=== PATIENT | female | born 1980 | race African-American/Black ===

== ENCOUNTER 2019-12-13 06:57 | Emergency (ER) | payer BC ==
[~2019-12-13] VITALS: Ht 162.6 cm; Wt 70.0 kg
[~2019-12-13 06:57] MED LIST: IBUP-1027 PO; ORPH100T PO
[2019-12-13 07:10] VITALS: BP 155/104
[2019-12-13] MEDS ORDERED: predniSONE 20 MG TABLET PO ONE (07:30)
[2019-12-13] MEDS ORDERED: PRED20TA PO (07:32)
--- NOTE | 2019-12-13 07:33 | PHYS DOC ---
Past Medical History Past Medical History: No Pertinent History Past Surgical History: No Surgical History Smoking Status: Never Smoker Alcohol Use: Occasionally Drug Use: Marijuana General Adult EDM: Chief Complaint: FACE PAIN HPI: HPI: Patient is a 39-year-old otherwise healthy female who presents with a fullness to the right side of her face. It feels like she has a sinus infection. The pain is throbbing in that area. She denies any rash. She denies any visual changes. She has had a watery eye at times. She tried Flonase at home without any benefit [] Review of Systems: Review of Systems: Constitutional: Denies fever or chills. [] Eyes: Denies change in visual acuity. [] HENT: Per HPI. [] Respiratory: Denies cough or shortness of breath. [] Cardiovascular: Denies chest pain or edema. [] GI: Denies abdominal pain, nausea, vomiting, bloody stools or diarrhea. [] : Denies dysuria. [] Musculoskeletal: Denies back pain or joint pain. [] Integument: Denies rash. [] Neurologic: Denies headache, focal weakness or sensory changes. [] Endocrine: Denies polyuria or polydipsia. [] Lymphatic: Denies swollen glands. [] Psychiatric: Denies depression or anxiety. [] Heart Score: Risk Factors: Risk Factors: DM, Current or recent (<one month) smoker, HTN, HLP, family history of CAD, obesity. Risk Scores: Score 0 - 3: 2.5% MACE over next 6 weeks - Discharge Home Score 4 - 6: 20.3% MACE over next 6 weeks - Admit for Clinical Observation Score 7 - 10: 72.7% MACE over next 6 weeks - Early Invasive Strategies Allergies: Allergies: Allergies Coded Allergies Type Severity Reaction Last Updated Verified No Known Drug Allergies 03/14/19 No Physical Exam: PE: Constitutional: Well developed, well nourished, mild distress, non-toxic appearance. [] HENT: Normocephalic, atraumatic, bilateral external ears normal, oropharynx moist, no oral exudates, nose normal. [] Eyes: PERRLA, EOMI, conjunctiva normal, no discharge, no pain with ocular compression. [] Neck: Normal range of motion, no tenderness, supple, no stridor. [] Cardiovascular:Heart rate regular rhythm, no murmur [] Lungs & Thorax: Bilateral breath sounds clear to auscultation [] Abdomen: Bowel sounds normal, soft, no tenderness, no masses, no pulsatile masses. [] Skin: Warm, dry, no erythema, no rash. [] Back: No tenderness, no CVA tenderness. [] Extremities: No tenderness, no cyanosis, no clubbing, ROM intact, no edema. [] Neurologic: Alert and oriented X 3, normal motor function, normal sensory function, no focal deficits noted. [] Psychologic: Anxious. [] Current Patient Data: Vital Signs: Vital Signs Date Time Temp Pulse Resp B/P (MAP) Pulse Ox O2 Delivery O2 Flow Rate FiO2 12/13/19 07:10 98.6 77 12 155/104 (121) 98 Room Air 98.6 EKG: EKG: [] Radiology/Procedures: Radiology/Procedures: [] Course & Med Decision Making: Course & Med Decision Making Pertinent Labs and Imaging studies reviewed. (See chart for details) [] Dragon Disclaimer: Dragon Disclaimer: This electronic medical record was generated, in whole or in part, using a voice recognition dictation system. Departure Departure Impression: Primary Impression: Sinusitis Qualified Codes: J32.0 - Chronic maxillary sinusitis Disposition: HOME, SELF-CARE Condition: STABLE Referrals: NO PCP (PCP) Patient Instructions: Sinusitis Scripts Prednisone (PREDNISONE) 20 Mg Tablet 3 TAB PO DAILY PRN for COUGH for 5 Days, #15 TAB Prov: MINAL HERNANDEZ DO 12/13/19 MINAL HERNANDEZ DO December 13, 2019 07:33
== END 2019-12-13 07:44 | disposition home or self-care (01) ==
LOC: ER 06:57
DX: J32.0 Chronic maxillary sinusitis (principal); R51 Headache; F12.90 Cannabis use, unspecified, uncomplicated
CPT/HCPCS: 99283; J7512

== ENCOUNTER 2021-05-01 08:52 | Inpatient (IN) | payer BC ==
[~2021-05-01] VITALS: Ht 162.6 cm; Wt 82.4 kg
[~2021-05-01 08:52] MED LIST changes: +PRED20TA PO
[2021-05-01] MEDS ORDERED: DEXAMETHASONE SOD PHOS 20 MG/5 ML VIAL. IV ONE (09:15)
[2021-05-01] MEDS ORDERED: ACETAMINOPHEN 500 MG TABLET PO ONE (09:15)
[2021-05-01] MEDS ORDERED: IV NORMAL SALINE 1000ML BAG 1,000 ML IV ONE ×2 (09:15)
--- NOTE | 2021-05-01 09:22 | PHYS DOC ---
Past Medical History Past Medical History: No Pertinent History Past Surgical History: No Surgical History Smoking Status: Never Smoker Alcohol Use: Occasionally Drug Use: Marijuana General Adult EDM: Chief Complaint: MULTIPLE COMPLAINTS HPI: HPI: Patient is a 40 year old female who presents with states began having symptoms 5 days ago and on this past Saturday she was diagnosed with Covid. She states she is had a cough that is productive with yellow sputum, fever, sore throat, nausea, body aches, generalized weakness, shortness of breath, headache. She states her only history is hypertension but she did not take her lisinopril today. She states she has been taking intermittently cold and flu medication, BC powder and Mucinex. Patient has not taken any medications for her symptoms today. She rates her pain 8 out of 10 body aches. Denies vomiting, chest pain, dizziness, vision change, numbness tingling, focal weakness, syncope, diarrhea, urinary symptoms. Review of Systems: Review of Systems: Constitutional: +fever or +chills. [] Eyes: Denies change in visual acuity. [] HENT: Denies nasal congestion or +sore throat. [] Respiratory: +cough or +shortness of breath. [] Cardiovascular: Denies chest pain or edema. [] GI: Denies abdominal pain, +nausea, denies vomiting, bloody stools or diarrhea. [] : Denies dysuria. [] Musculoskeletal: Denies back pain or joint pain. + Generalized body aches , + generalized weakness [] Integument: Denies rash. [] Neurologic: + headache, denies focal weakness or sensory changes. [] Endocrine: Denies polyuria or polydipsia. [] Lymphatic: Denies swollen glands. [] Psychiatric: Denies depression or anxiety. [] Heart Score: C/O Chest Pain: No Risk Factors: Risk Factors: DM, Current or recent (<one month) smoker, HTN, HLP, family history of CAD, obesity. Risk Scores: Score 0 - 3: 2.5% MACE over next 6 weeks - Discharge Home Score 4 - 6: 20.3% MACE over next 6 weeks - Admit for Clinical Observation Score 7 - 10: 72.7% MACE over next 6 weeks - Early Invasive Strategies Current Medications: Current Medications Medications (Trade) Dose Ordered Sig/Isabela Start Time Stop Time Status Last Admin Dose Admin Acetaminophen (Tylenol) 1,000 mg 1X ONCE 05/01/21 09:15 05/01/21 09:16 UNV Dexamethasone Sodium Phosphate (Decadron) 10 mg 1X ONCE 05/01/21 09:15 05/01/21 09:16 UNV Sodium Chloride 1,000 ml @ 1,000 mls/hr 1X ONCE 05/01/21 09:15 05/01/21 10:14 UNV Allergies: Allergies: Allergies Coded Allergies Type Severity Reaction Last Updated Verified No Known Drug Allergies 03/14/19 No Physical Exam: PE: Constitutional: Well developed, well nourished, no acute distress, non-toxic appearance. [] HENT: Normocephalic, atraumatic, bilateral external ears normal, oropharynx [address], no oral exudates, nose normal. [] Eyes: PERRLA, EOMI, conjunctiva normal, no discharge. [] Neck: Normal range of motion, no tenderness, supple, no stridor. [] Cardiovascular:Heart rate regular tachycardic rhythm, no murmur [] Lungs & Thorax: Bilateral upper breath sounds clear and lower diminished to auscultation [] Abdomen: Bowel sounds normal, soft, no tenderness, no masses, no pulsatile masses. [] Skin: Warm, dry, no erythema, no rash. [] Back: No tenderness, no CVA tenderness. [] Extremities: No tenderness, no cyanosis, no clubbing, ROM intact, no edema. [] Neurologic: Alert and oriented X 3, normal motor function, normal sensory function, no focal deficits noted. [] Psychologic: Affect normal, judgement normal, mood normal. [] EKG: EK and read by Dr. Cabezas as sinus tachycardia no STEMI [] Radiology/Procedures: Radiology/Procedures: [] Impression: [facility] [address] [place] [address] IMAGING REPORT Signed PATIENT: TERENCE WHITE RACCOUNT: [id number] : 1980 LOCATION: ER AGE: 40 SEX: F EXAM STATUS: REG ER ORD. PHYSICIAN: WILLAM ARORA APRN REASON: soa, cough, covid+ PROCEDURE: PORTABLE CHEST 1V EXAM: CHEST 1 VIEW History: Shortness of breath, Covid positive COMPARISON: None available. TECHNIQUE: Single portable radiograph of the chest FINDINGS: Low lung volumes and technique accentuates heart size and pulmonary vascularity. Mild bibasilar lung airspace opacities likely atelectasis or infiltrates. IMPRESSION: Mild bibasilar lung airspace opacities likely atelectasis or infiltrates. Follow-up to resolution. Electronically signed by: Michael Quarles MD (05/01/2021 9:48 AM) [id number] DICTATED and SIGNED BY: MICHAEL QUARLES MD DATE: 05/01/21 [id number] Course & Med Decision Making: Course & Med Decision Making Pertinent Labs and Imaging studies reviewed. (See chart for details) COVID-19 CRITERIA: The patient was evaluated during the global COVID-19 pandemic, and that diagnosis was suspected/considered upon their initial presentation. Their evaluation, treatment and testing was consistent with current guidelines for patients who present with complaints or symptoms that may be related to COVID-19. See HPI. Alert and oriented x4. Ambulatory steady gait. Speaks in full clear sentences. Lungs are clear upper lobes and diminished in lower lobes. She is 95% on room air. Abdomen soft and nontender. Mucous membranes dry. Skin pink warm and dry. Febrile at 102.4. Patient is given dexamethasone, Rocephin, azithromycin. ABG shows hypoxia. X-ray shows pneumonia. She is placed on 4 L of oxygen by respiratory. Admitted to hospitalist. [] Miladon Disclaimer: Sebastian Disclaimer: This electronic medical record was generated, in whole or in part, using a voice recognition dictation system. COVID-19 Patient Risks: Age 65 or older: No Sign of co-morbidity: Yes Exp to person + for COVID: No Exp to PUI: No Travel from affected area: No Lower respiratory symptoms: Yes Fever: Yes Other: Yes (NAUSEA, BODYACHES) PPE Use: Full PPE with N95 mask or PAPR: Yes Departure Departure Impression: Primary Impression: COVID-19 Additional Impressions: Hypoxia Pneumonia Qualified Codes: J18.9 - Pneumonia, unspecified organism Disposition: ADMITTED INPATIENT Admitting Physician: HIMCelia Condition: STABLE Referrals: NO PCP (PCP) WILLAM ARORA APRN May 01, 2021 09:22
[2021-05-01] MEDS ORDERED: KETOROLAC 30 MG/ML VIAL. IVP ONE (09:45)
[2021-05-01] MEDS ORDERED: ONDANSETRON PF 4 MG/2 ML VIAL. IVP ONE (09:45)
--- NOTE | 2021-05-01 09:50 | RAD ---
EXAM: CHEST 1 VIEW History: Shortness of breath, Covid positive COMPARISON: None available. TECHNIQUE: Single portable radiograph of the chest FINDINGS: Low lung volumes and technique accentuates heart size and pulmonary vascularity. Mild biba silar lung airspace opacities likely atelectasis or infiltrates. IMPRESSION: Mild bibasilar lung airspace opacities likely atelectasis or infiltrates. Follow-up to efrem hernandez. Electronically signed by: Michael Quarles MD (05/01/2021 9:48 AM) [id number]
[2021-05-01 09:53] LABS: BASO % 0 % (0-3); EOS % 0 % (0-3); HEMATOCRIT 37.8 % (36.0-47.0); HEMOGLOBIN 13.4 g/dL (12.0-15.5); LYMPH % 18 % (24-48); MEAN CORPUSCULAR HEMOGLOBIN 33 pg (25-35); MEAN CORPUSCULAR HGB CONC 35 g/dL (31-37); MEAN CORPUSCULAR VOLUME 94 fL (79-100); MONO # 0.4 x10^3/uL (0.0-1.1); MONO % 8 % (0-9); NEUT % 74 % (31-73); PLATELET COUNT 205 x10^3/uL (140-400); RED BLOOD COUNT 4.03 x10^6/uL (3.50-5.40); RED CELL DISTRIBUTION WIDTH 12.7 % (11.5-14.5); WHITE BLOOD COUNT 5.4 x10^3/uL (4.0-11.0)
[2021-05-01 09:55] LABS: ALBUMIN 3.5 g/dL (3.4-5.0); ALBUMIN/GLOBULIN RATIO 0.8 (1.0-1.7); CALCIUM 8.4 mg/dL (8.5-10.1); CREATININE 0.9 mg/dL (0.6-1.0); GFR 84.3; TOTAL BILIRUBIN 0.2 mg/dL (0.2-1.0); TOTAL PROTEIN 7.8 g/dL (6.4-8.2)
[2021-05-01] MEDS ORDERED: AZITHRMYCN 500MG IVPB FOR OMNI 250 ML IV ONE (10:00)
[2021-05-01] MEDS ORDERED: cefTRIAXone IV Push 1 GM VIAL. IVP ONE (10:00)
[2021-05-01] MEDS ORDERED: POTASSIUM CHLORIDE 20 MEQ TABLET.ER. PO ONE (10:45)
[2021-05-01 10:55] LABS: BASE EXCESS COOX 2 mmol/L (-3-3); HCO3 COOX 27 mmol/L (21-28); METHEMOGLOBIN 0.5 % (0.0-1.9); OXYHEMOGLOBIN 84.3 %; PCO2 COOX 42 mmHg (35-46); PO2 COOX 52 mmHg (75-108); SAT O2 COOX 85 % (92-99)
[2021-05-01 11:11] LABS: BILIRUBIN,URINE NEGATIVE (NEG); CLARITY,URINE CLEAR; COLOR,URINE YELLOW; NITRITE,URINE NEGATIVE (NEG); PROTEIN,URINE NEGATIVE (NEG-TRACE); UROBILINOGEN,URINE 0.2 mg/dL (0.2 mg/dL)
[2021-05-01 11:27] LABS: BACTERIA,URINE 0 /HPF (0-FEW); WBC,URINE 0 /HPF (0-4)
[2021-05-01] MEDS ORDERED: ACETAMINOPHEN 325 MG TABLET. PO PRN ×2 (11:45→13:15)
[2021-05-01] MEDS ORDERED: ONDANSETRON PF 4 MG/2 ML VIAL. IVP PRN ×2 (11:45→13:15)
--- NOTE | 2021-05-01 12:49 | PDOC1 ---
History and Physical Date of Admission Date of Admission DATE: 05/01/21 TIME: 12:27 Identification/Chief Complaint Chief Complaint Shortness of breath Source Source: Patient History of Present Illness History of Present Illness Patient is a 40-year-old female with past medical history HTN, presents to the ED with complaints of worsening shortness of breath over the past 2 days. She reports associated sore throat, cough, muscle aches, headache, fatigue, fever/chills. States her symptoms started 5 days ago (Saturday), and she was diagnosed with COVID-19 two days ago (Saturday). Since her diagnosis on Saturday she states her symptoms have worsened. Upon arrival in the ED she was saturating 94% on room air. ABG was obtained that showed PO2 52 and she was subsequently placed on 4 L nasal cannula. Labs on admission showed potassium of 3.0, AST 57, ALT 55, CBG 128. Chest x-ray showed mild bibasilar lung airspace opacities likely atelectasis or infiltrates. She received broad-spectrum anti biotics, fluids, and Decadron in the ED. Will admit patient for further medical management. Past Medical History Cardiovascular: HTN Past Surgical History Past Surgical History Thyroidectomy, lipoma removal Family History Family History: Hypertension Social History Smoke: No ALCOHOL: occassional Drugs: Marijuana Current Problem List Problem List Problems Medical Problems: (1) COVID-19 Status: Acute (2) Hypoxia Status: Acute (3) Pneumonia Status: Acute Current Medications Current Medications Current Medications Dexamethasone Sodium Phosphate (Decadron) 10 mg 1X ONCE IV Last administered on 05/01/21at 09:33; Start 05/01/21 at 09:15; Stop 05/01/21 at 09:17; Status DC Acetaminophen (Tylenol) 1,000 mg 1X ONCE PO Last administered on 05/01/21at 09:33; Start 05/01/21 at 09:15; Stop 05/01/21 at 09:17; Status DC Sodium Chloride 1,000 ml @ 1,000 mls/hr 1X ONCE IV Last administered on 05/01/21at 09:29; Start 05/01/21 at 09:15; Stop 05/01/21 at 10:14; Status DC Sodium Chloride 1,000 ml @ 1,000 mls/hr 1X ONCE IV Last administered on 05/01/21at 09:30; Start 05/01/21 at 09:15; Stop 05/01/21 at 10:14; Status DC Ketorolac Tromethamine (Toradol 30mg Vial) 30 mg 1X ONCE IVP Last administered on 05/01/21at 09:58; Start 05/01/21 at 09:45; Stop 05/01/21 at 09:46; Status DC Ondansetron HCl (Zofran) 4 mg 1X ONCE IVP Last administered on 05/01/21at 09:53; Start 05/01/21 at 09:45; Stop 05/01/21 at 09:46; Status DC Azithromycin 250 ml @ 250 mls/hr 1X ONCE IV Last administered on 05/01/21at 11:41; Start 05/01/21 at 10:00; Stop 05/01/21 at 10:59; Status DC Ceftriaxone Sodium (Rocephin) 1 gm 1X ONCE IVP Last administered on 05/01/21at 11:40; Start 05/01/21 at 10:00; Stop 05/01/21 at 10:02; Status DC Potassium Chloride (Klor-Con) 40 meq 1X ONCE PO Last administered on 05/01/21at 11:39; Start 05/01/21 at 10:45; Stop 05/01/21 at 10:46; Status DC Ondansetron HCl (Zofran) 4 mg PRN Q8HRS PRN IVP NAUSEA/VOMITING; Start 05/01/21 at 11:45; Stop 05/02/21 at 11:44 Acetaminophen (Tylenol) 650 mg PRN Q4HRS PRN PO FEVER > 100.3'F; Start 05/01/21 at 11:45; Stop 05/02/21 at 11:44 Active Scripts Active Prednisone 20 Mg Tablet 3 Tab PO DAILY PRN 5 Days Orphenadrine Citrate 100 Mg Tablet.er 1 Tab PO BID PRN 5 Days Ibuprofen 400 Mg Tablet 400 Mg PO PRN Q6HRS PRN 5 Days Allergies Allergies: Coded Allergies: No Known Drug Allergies (Unverified , 03/14/19) ROS Review of System GENERAL: Generalized muscle aches, fever, chills. No history of weight change, or weakness. SKIN: No bruising, hair changes or rashes. EYES: No blurred, double or loss of vision. NOSE AND THROAT: Sore throat. No history of nosebleeds or hoarseness. HEART: Denies chest pain, denies palpitations. LUNGS: Shortness of breath, cough. Denies hemoptysis, or wheezing. GASTROINTESTINAL: Denies nausea, vomiting, abdominal pain. GENITOURINARY: Denies dysuria, frequency, urgency, hematuria. NEUROLOGIC: Headache. Denies history of numbness, tingling, tremor or weakness. PSYCHIATRIC: Denies anxiety, denies depression. ENDOCRINE: No history of heat or cold intolerance, polyuria or polydipsia. EXTREMITIES: Denies muscle weakness, joint pain, pain on walking or stiffness. Physical Exam Physical Exam General: Alert, Oriented X3, Cooperative, mild distress HEENT: PERRLA, EOMI Lungs: No increased work of breathing, Normal air movement Heart: RRR, no murmurs Cardiovascular: S1, S2 Abdomen: Normal bowel sounds, Soft, No tenderness Extremities: No clubbing, No cyanosis Skin: No rashes, No significant lesion Neuro: Normal speech, Normal tone, Sensation intact Psych/Mental Status: Mental status NL, Mood NL Vitals Vitals Vital Signs Date Time Temp Pulse Resp B/P (MAP) Pulse Ox O2 Delivery O2 Flow Rate FiO2 05/01/21 10:45 Room Air 05/01/21 09:39 112 23 135/81 (99) 94 05/01/21 08:59 102.4 102.4 Labs Labs Laboratory Tests Test 05/01/21 09:15 05/01/21 09:45 05/01/21 10:45 05/01/21 10:53 White Blood Count 5.4 x10^3/uL (4.0-11.0) Red Blood Count 4.03 x10^6/uL (3.50-5.40) Hemoglobin 13.4 g/dL (12.0-15.5) Hematocrit 37.8 % (36.0-47.0) Mean Corpuscular Volume 94 fL (79-100) Mean Corpuscular Hemoglobin 33 pg (25-35) Mean Corpuscular Hemoglobin Concent 35 g/dL (31-37) Red Cell Distribution Width 12.7 % (11.5-14.5) Platelet Count 205 x10^3/uL (140-400) Neutrophils (%) (Auto) 74 % (31-73) Lymphocytes (%) (Auto) 18 % (24-48) Monocytes (%) (Auto) 8 % (0-9) Eosinophils (%) (Auto) 0 % (0-3) Basophils (%) (Auto) 0 % (0-3) Neutrophils # (Auto) 4.0 x10^3/uL (1.8-7.7) Lymphocytes # (Auto) 1.0 x10^3/uL (1.0-4.8) Monocytes # (Auto) 0.4 x10^3/uL (0.0-1.1) Eosinophils # (Auto) 0.0 x10^3/uL (0.0-0.7) Basophils # (Auto) 0.0 x10^3/uL (0.0-0.2) Sodium Level 136 mmol/L (136-145) Potassium Level 3.0 mmol/L (3.5-5.1) Chloride Level 95 mmol/L (98-107) Carbon Dioxide Level 31 mmol/L (21-32) Anion Gap 10 (6-14) Blood Urea Nitrogen 4 mg/dL (7-20) Creatinine 0.9 mg/dL (0.6-1.0) Estimated GFR (Cockcroft-Gault) 84.3 BUN/Creatinine Ratio 4 (6-20) Glucose Level 128 mg/dL (70-99) Lactic Acid Level 1.5 mmol/L (0.4-2.0) Calcium Level 8.4 mg/dL (8.5-10.1) Magnesium Level 2.1 mg/dL (1.8-2.4) Total Bilirubin 0.2 mg/dL (0.2-1.0) Aspartate Amino Transf (AST/SGOT) 57 U/L (15-37) Alanine Aminotransferase (ALT/SGPT) 55 U/L (14-59) Alkaline Phosphatase 74 U/L (46-116) Troponin I Quantitative < 0.017 ng/mL (0.000-0.055) C-Reactive Protein, Quantitative 75.5 mg/L (0-3.3) CP-Hfp-K-Type Natriuretic Peptide 7 pg/mL (0-124) Total Protein 7.8 g/dL (6.4-8.2) Albumin 3.5 g/dL (3.4-5.0) Albumin/Globulin Ratio 0.8 (1.0-1.7) Bedside Urine HCG, Qualitative Hcg negative (Negative) O2 Saturation 85 % (92-99) Arterial Blood pH 7.41 (7.35-7.45) Arterial Blood pCO2 at Patient Temp 42 mmHg (35-46) Arterial Blood pO2 at Patient Temp 52 mmHg (75-108) Arterial Blood HCO3 27 mmol/L (21-28) Arterial Blood Base Excess 2 mmol/L (-3-3) Oxyhemoglobin 84.3 % Methemoglobin 0.5 % (0.0-1.9) Carbon Monoxide, Quantitative 0.3 % (0.0-1.9) FiO2 21 Urine Collection Type Void Urine Color Yellow Urine Clarity Clear Urine pH 6.0 (<5.0-8.0) Urine Specific [place] <=1.005 (1.000-1.030) Urine Protein Negative mg/dL (NEG-TRACE) Urine Glucose (UA) Negative mg/dL (NEG) Urine Ketones (Stick) Negative mg/dL (NEG) Urine Blood Moderate (NEG) Urine Nitrite Negative (NEG) Urine Bilirubin Negative (NEG) Urine Urobilinogen Dipstick 0.2 mg/dL (0.2 mg/dL) Urine Leukocyte Esterase Negative (NEG) Urine RBC 3-5 /HPF (0-2) Urine WBC 0 /HPF (0-4) Urine Squamous Epithelial Cells Few /LPF Urine Bacteria 0 /HPF (0-FEW) Urine Mucus Slight /LPF Laboratory Tests Test 05/01/21 09:15 05/01/21 09:45 05/01/21 10:45 05/01/21 10:53 White Blood Count 5.4 x10^3/uL (4.0-11.0) Red Blood Count 4.03 x10^6/uL (3.50-5.40) Hemoglobin 13.4 g/dL (12.0-15.5) Hematocrit 37.8 % (36.0-47.0) Mean Corpuscular Volume 94 fL (79-100) Mean Corpuscular Hemoglobin 33 pg (25-35) Mean Corpuscular Hemoglobin Concent 35 g/dL (31-37) Red Cell Distribution Width 12.7 % (11.5-14.5) Platelet Count 205 x10^3/uL (140-400) Neutrophils (%) (Auto) 74 % (31-73) Lymphocytes (%) (Auto) 18 % (24-48) Monocytes (%) (Auto) 8 % (0-9) Eosinophils (%) (Auto) 0 % (0-3) Basophils (%) (Auto) 0 % (0-3) Neutrophils # (Auto) 4.0 x10^3/uL (1.8-7.7) Lymphocytes # (Auto) 1.0 x10^3/uL (1.0-4.8) Monocytes # (Auto) 0.4 x10^3/uL (0.0-1.1) Eosinophils # (Auto) 0.0 x10^3/uL (0.0-0.7) Basophils # (Auto) 0.0 x10^3/uL (0.0-0.2) Sodium Level 136 mmol/L (136-145) Potassium Level 3.0 mmol/L (3.5-5.1) Chloride Level 95 mmol/L (98-107) Carbon Dioxide Level 31 mmol/L (21-32) Anion Gap 10 (6-14) Blood Urea Nitrogen 4 mg/dL (7-20) Creatinine 0.9 mg/dL (0.6-1.0) Estimated GFR (Cockcroft-Gault) 84.3 BUN/Creatinine Ratio 4 (6-20) Glucose Level 128 mg/dL (70-99) Lactic Acid Level 1.5 mmol/L (0.4-2.0) Calcium Level 8.4 mg/dL (8.5-10.1) Magnesium Level 2.1 mg/dL (1.8-2.4) Total Bilirubin 0.2 mg/dL (0.2-1.0) Aspartate Amino Transf (AST/SGOT) 57 U/L (15-37) Alanine Aminotransferase (ALT/SGPT) 55 U/L (14-59) Alkaline Phosphatase 74 U/L (46-116) Troponin I Quantitative < 0.017 ng/mL (0.000-0.055) C-Reactive Protein, Quantitative 75.5 mg/L (0-3.3) GI-Qmd-B-Type Natriuretic Peptide 7 pg/mL (0-124) Total Protein 7.8 g/dL (6.4-8.2) Albumin 3.5 g/dL (3.4-5.0) Albumin/Globulin Ratio 0.8 (1.0-1.7) Bedside Urine HCG, Qualitative Hcg negative (Negative) O2 Saturation 85 % (92-99) Arterial Blood pH 7.41 (7.35-7.45) Arterial Blood pCO2 at Patient Temp 42 mmHg (35-46) Arterial Blood pO2 at Patient Temp 52 mmHg (75-108) Arterial Blood HCO3 27 mmol/L (21-28) Arterial Blood Base Excess 2 mmol/L (-3-3) Oxyhemoglobin 84.3 % Methemoglobin 0.5 % (0.0-1.9) Carbon Monoxide, Quantitative 0.3 % (0.0-1.9) FiO2 21 Urine Collection Type Void Urine Color Yellow Urine Clarity Clear Urine pH 6.0 (<5.0-8.0) Urine Specific [place] <=1.005 (1.000-1.030) Urine Protein Negative mg/dL (NEG-TRACE) Urine Glucose (UA) Negative mg/dL (NEG) Urine Ketones (Stick) Negative mg/dL (NEG) Urine Blood Moderate (NEG) Urine Nitrite Negative (NEG) Urine Bilirubin Negative (NEG) Urine Urobilinogen Dipstick 0.2 mg/dL (0.2 mg/dL) Urine Leukocyte Esterase Negative (NEG) Urine RBC 3-5 /HPF (0-2) Urine WBC 0 /HPF (0-4) Urine Squamous Epithelial Cells Few /LPF Urine Bacteria 0 /HPF (0-FEW) Urine Mucus Slight /LPF Images Images PATIENT: TERENCE WHITE RACCOUNT: [id number] : 1980 LOCATION: ER AGE: 40 SEX: F EXAM STATUS: REG ER ORD. PHYSICIAN: WILLAM ARORA APRN REASON: soa, cough, covid+ PROCEDURE: PORTABLE CHEST 1V EXAM: CHEST 1 VIEW History: Shortness of breath, Covid positive COMPARISON: None available. TECHNIQUE: Single portable radiograph of the chest FINDINGS: Low lung volumes and technique accentuates heart size and pulmonary vascularity. Mild bibasilar lung airspace opacities likely atelectasis or infiltrates. IMPRESSION: Mild bibasilar lung airspace opacities likely atelectasis or infiltrates. Follow-up to resolution. VTE Prophylaxis Ordered VTE Prophylaxis Devices: No VTE Pharmacological Prophylaxi: Yes Assessment/Plan Assessment/Plan Acute respiratory failure with hypoxemia COVID-19 pneumonia Hypokalemia Hyperglycemia HTN Plan: After discussion with treatment options with patient, she would prefer not to stay hospitalized for 5 days to receive remdesivir. Given elevated CRP and risk factors for progression to severe respiratory disease, will consult pulmonology. Continue with Decadron 6 mg daily, remdesivir, and Tocilizumab We will obtain 6-minute walk to evaluate for home O2 requirements Hemoglobin A1c pending Supportive care FEN - Cardiac diet PPX - Lovenox FULL CODE Dispo - inpatient for above Justifications for Admission Other Justification SHYANN WU MD May 01, 2021 12:49
[2021-05-01] MEDS ORDERED: CYCLOBENZAPRINE 10 MG TABLET. PO PRN (13:15)
[2021-05-01] MEDS ORDERED: HYDROcodone/APAP 5/325MG 1 TAB TABLET PO PRN (13:15)
[2021-05-01] MEDS ORDERED: CALCIUM CARBONATE 500 MG TAB.CHEW PO PRN (13:15)
[2021-05-01] MEDS ORDERED: MAGNESIUM HYDROXIDE 2,400 MG/30 ML ORAL.SUSP. PO PRN (13:15)
[2021-05-01] MEDS ORDERED: MAG HYDROX/ALUMINUM HYD/SIMETH 30 ML ORAL.SUSP PO PRN (13:15)
[2021-05-01 13:32] LABS: LACTATE DEHYDROGENASE 330 U/L (81-234)
[2021-05-01] MEDS ORDERED: TOCILIZUMAB 640 MG in IV NORMAL SALINE 100ML 68 ML IV ONE (14:00)
[2021-05-01] MEDS ORDERED: REMDESIVIR LOAD in IV NORMAL SALINE 250ML TV IV ONE (14:00)
--- NOTE | 2021-05-01 14:05 | PDOC ---
PULMONARY PROGRESS NOTES DATE: 05/01/21 TIME: 14:05 Vitals Vital Signs Date Time Temp Pulse Resp B/P (MAP) Pulse Ox O2 Delivery O2 Flow Rate FiO2 05/01/21 12:39 96 24 121/77 (92) 100 Nasal Cannula 4.0 05/01/21 08:59 102.4 102.4 Labs Laboratory Tests Test 05/01/21 09:15 05/01/21 09:45 05/01/21 10:45 05/01/21 10:53 White Blood Count 5.4 x10^3/uL (4.0-11.0) Red Blood Count 4.03 x10^6/uL (3.50-5.40) Hemoglobin 13.4 g/dL (12.0-15.5) Hematocrit 37.8 % (36.0-47.0) Mean Corpuscular Volume 94 fL (79-100) Mean Corpuscular Hemoglobin 33 pg (25-35) Mean Corpuscular Hemoglobin Concent 35 g/dL (31-37) Red Cell Distribution Width 12.7 % (11.5-14.5) Platelet Count 205 x10^3/uL (140-400) Neutrophils (%) (Auto) 74 % (31-73) Lymphocytes (%) (Auto) 18 % (24-48) Monocytes (%) (Auto) 8 % (0-9) Eosinophils (%) (Auto) 0 % (0-3) Basophils (%) (Auto) 0 % (0-3) Neutrophils # (Auto) 4.0 x10^3/uL (1.8-7.7) Lymphocytes # (Auto) 1.0 x10^3/uL (1.0-4.8) Monocytes # (Auto) 0.4 x10^3/uL (0.0-1.1) Eosinophils # (Auto) 0.0 x10^3/uL (0.0-0.7) Basophils # (Auto) 0.0 x10^3/uL (0.0-0.2) D-Dimer (Samantha) 0.40 ug/mlFEU (0.00-0.50) Sodium Level 136 mmol/L (136-145) Potassium Level 3.0 mmol/L (3.5-5.1) Chloride Level 95 mmol/L (98-107) Carbon Dioxide Level 31 mmol/L (21-32) Anion Gap 10 (6-14) Blood Urea Nitrogen 4 mg/dL (7-20) Creatinine 0.9 mg/dL (0.6-1.0) Estimated GFR (Cockcroft-Gault) 84.3 BUN/Creatinine Ratio 4 (6-20) Glucose Level 128 mg/dL (70-99) Lactic Acid Level 1.5 mmol/L (0.4-2.0) Calcium Level 8.4 mg/dL (8.5-10.1) Magnesium Level 2.1 mg/dL (1.8-2.4) Ferritin 509 ng/mL (8-252) Total Bilirubin 0.2 mg/dL (0.2-1.0) Aspartate Amino Transf (AST/SGOT) 57 U/L (15-37) Alanine Aminotransferase (ALT/SGPT) 55 U/L (14-59) Alkaline Phosphatase 74 U/L (46-116) Lactate Dehydrogenase 330 U/L (81-234) Troponin I Quantitative < 0.017 ng/mL (0.000-0.055) C-Reactive Protein, Quantitative 75.5 mg/L (0-3.3) ZR-Huc-D-Type Natriuretic Peptide 7 pg/mL (0-124) Total Protein 7.8 g/dL (6.4-8.2) Albumin 3.5 g/dL (3.4-5.0) Albumin/Globulin Ratio 0.8 (1.0-1.7) Bedside Urine HCG, Qualitative Hcg negative (Negative) O2 Saturation 85 % (92-99) Arterial Blood pH 7.41 (7.35-7.45) Arterial Blood pCO2 at Patient Temp 42 mmHg (35-46) Arterial Blood pO2 at Patient Temp 52 mmHg (75-108) Arterial Blood HCO3 27 mmol/L (21-28) Arterial Blood Base Excess 2 mmol/L (-3-3) Oxyhemoglobin 84.3 % Methemoglobin 0.5 % (0.0-1.9) Carbon Monoxide, Quantitative 0.3 % (0.0-1.9) FiO2 21 Urine Collection Type Void Urine Color Yellow Urine Clarity Clear Urine pH 6.0 (<5.0-8.0) Urine Specific [place] <=1.005 (1.000-1.030) Urine Protein Negative mg/dL (NEG-TRACE) Urine Glucose (UA) Negative mg/dL (NEG) Urine Ketones (Stick) Negative mg/dL (NEG) Urine Blood Moderate (NEG) Urine Nitrite Negative (NEG) Urine Bilirubin Negative (NEG) Urine Urobilinogen Dipstick 0.2 mg/dL (0.2 mg/dL) Urine Leukocyte Esterase Negative (NEG) Urine RBC 3-5 /HPF (0-2) Urine WBC 0 /HPF (0-4) Urine Squamous Epithelial Cells Few /LPF Urine Bacteria 0 /HPF (0-FEW) Urine Mucus Slight /LPF Laboratory Tests Test 05/01/21 09:15 05/01/21 09:45 05/01/21 10:45 05/01/21 10:53 White Blood Count 5.4 x10^3/uL (4.0-11.0) Red Blood Count 4.03 x10^6/uL (3.50-5.40) Hemoglobin 13.4 g/dL (12.0-15.5) Hematocrit 37.8 % (36.0-47.0) Mean Corpuscular Volume 94 fL (79-100) Mean Corpuscular Hemoglobin 33 pg (25-35) Mean Corpuscular Hemoglobin Concent 35 g/dL (31-37) Red Cell Distribution Width 12.7 % (11.5-14.5) Platelet Count 205 x10^3/uL (140-400) Neutrophils (%) (Auto) 74 % (31-73) Lymphocytes (%) (Auto) 18 % (24-48) Monocytes (%) (Auto) 8 % (0-9) Eosinophils (%) (Auto) 0 % (0-3) Basophils (%) (Auto) 0 % (0-3) Neutrophils # (Auto) 4.0 x10^3/uL (1.8-7.7) Lymphocytes # (Auto) 1.0 x10^3/uL (1.0-4.8) Monocytes # (Auto) 0.4 x10^3/uL (0.0-1.1) Eosinophils # (Auto) 0.0 x10^3/uL (0.0-0.7) Basophils # (Auto) 0.0 x10^3/uL (0.0-0.2) D-Dimer (Samantha) 0.40 ug/mlFEU (0.00-0.50) Sodium Level 136 mmol/L (136-145) Potassium Level 3.0 mmol/L (3.5-5.1) Chloride Level 95 mmol/L (98-107) Carbon Dioxide Level 31 mmol/L (21-32) Anion Gap 10 (6-14) Blood Urea Nitrogen 4 mg/dL (7-20) Creatinine 0.9 mg/dL (0.6-1.0) Estimated GFR (Cockcroft-Gault) 84.3 BUN/Creatinine Ratio 4 (6-20) Glucose Level 128 mg/dL (70-99) Lactic Acid Level 1.5 mmol/L (0.4-2.0) Calcium Level 8.4 mg/dL (8.5-10.1) Magnesium Level 2.1 mg/dL (1.8-2.4) Ferritin 509 ng/mL (8-252) Total Bilirubin 0.2 mg/dL (0.2-1.0) Aspartate Amino Transf (AST/SGOT) 57 U/L (15-37) Alanine Aminotransferase (ALT/SGPT) 55 U/L (14-59) Alkaline Phosphatase 74 U/L (46-116) Lactate Dehydrogenase 330 U/L (81-234) Troponin I Quantitative < 0.017 ng/mL (0.000-0.055) C-Reactive Protein, Quantitative 75.5 mg/L (0-3.3) SJ-Zcm-B-Type Natriuretic Peptide 7 pg/mL (0-124) Total Protein 7.8 g/dL (6.4-8.2) Albumin 3.5 g/dL (3.4-5.0) Albumin/Globulin Ratio 0.8 (1.0-1.7) Bedside Urine HCG, Qualitative Hcg negative (Negative) O2 Saturation 85 % (92-99) Arterial Blood pH 7.41 (7.35-7.45) Arterial Blood pCO2 at Patient Temp 42 mmHg (35-46) Arterial Blood pO2 at Patient Temp 52 mmHg (75-108) Arterial Blood HCO3 27 mmol/L (21-28) Arterial Blood Base Excess 2 mmol/L (-3-3) Oxyhemoglobin 84.3 % Methemoglobin 0.5 % (0.0-1.9) Carbon Monoxide, Quantitative 0.3 % (0.0-1.9) FiO2 21 Urine Collection Type Void Urine Color Yellow Urine Clarity Clear Urine pH 6.0 (<5.0-8.0) Urine Specific [place] <=1.005 (1.000-1.030) Urine Protein Negative mg/dL (NEG-TRACE) Urine Glucose (UA) Negative mg/dL (NEG) Urine Ketones (Stick) Negative mg/dL (NEG) Urine Blood Moderate (NEG) Urine Nitrite Negative (NEG) Urine Bilirubin Negative (NEG) Urine Urobilinogen Dipstick 0.2 mg/dL (0.2 mg/dL) Urine Leukocyte Esterase Negative (NEG) Urine RBC 3-5 /HPF (0-2) Urine WBC 0 /HPF (0-4) Urine Squamous Epithelial Cells Few /LPF Urine Bacteria 0 /HPF (0-FEW) Urine Mucus Slight /LPF Medications Active Scripts Medications Dose Route/Sig Max Daily Dose Days Date Category Prednisone 20 Mg Tablet 3 Tab PO DAILY PRN 5 12/13/19 Rx Orphenadrine Citrate 100 Mg Tablet.er 1 Tab PO BID PRN 5 03/14/19 Rx Ibuprofen 400 Mg Tablet 400 Mg PO PRN Q6HRS PRN 5 03/14/19 Rx Impression . Full note dictated Discussed with Dr. Crawford Discussed with pharmacy Add remdesivir and tocilizumab LIBRA JAVIER MD May 01, 2021 14:05
--- NOTE | 2021-05-01 14:52 | CONS ---
DATE OF CONSULTATION: 05/01/2021 ATTENDING PHYSICIAN: Dr. Crawford. CONSULTING PHYSICIAN: Dr. Liao. REASON FOR CONSULTATION: The patient is seen in pulmonary consultation at the request of Dr. Crawford for hypoxemia and abnormal x-ray. HISTORY OF PRESENT ILLNESS: The patient is a 40-year-old who presented with cough, shortness of breath, some chest tightness. She has had this since Saturday. She tested positive for COVID-19 as an outpatient, presented, was evaluated, had a chest x-ray, compatible with COVID-19. Arterial blood gas revealed a pO2 of 52. She is currently on 2-3 liters of oxygen supplementation. I was asked to see her in consultation. She had a white count, which was normal. She had lymphopenia. Her electrolytes were noted. BUN and creatinine were normal. Her AST was slightly elevated at 57. D-dimer was 0.40. PAST MEDICAL HISTORY: Remarkable for hypertension. PAST SURGICAL HISTORY: She has a history of thyroid ectomy. ALLERGIES: No known drug allergies. SOCIAL HISTORY: She works at [employer]. No significant exposures. Occasional use of alcohol and marijuana. She does not smoke. FAMILY HISTORY: Hypertension. REVIEW OF SYSTEMS: As indicated above, otherwise other systems were reviewed and negative. PHYSICAL EXAMINATION: VITAL SIGNS: Stable. O2 saturation currently on 4 liters was greater than 90%. HEENT: Eyes: The sclerae were nonicteric. NECK: Jugular venous distention was not elevated. No lymphadenopathy. CHEST: Full expansion. LUNGS: Crackles in the bases. CARDIOVASCULAR: Regular rate and rhythm with S1, S2, no S3. ABDOMEN: Soft, obese. EXTREMITIES: No clubbing, cyanosis or edema. LABORATORY DATA: As indicated above. IMPRESSION: 1. Acute hypoxemic respiratory failure secondary to COVID-19 viral pneumonia. 2. COVID-19 viral pneumonia. 3. Fever secondary to above. 4. Obesity. 5. Hypertension. PLAN: The patient at risk for progression of her COVID-19, we will proceed with IV remdesivir, IV tocilizumab. Her C-reactive protein was 75. Continue oxygen supplementation. DVT prophylaxis. Monitor closely for any deterioration. The patient initiated on ceftriaxone for possible bacterial concomitant pneumonia. Continue home medications. I do appreciate the privilege in sharing in the patient's care. LILLIAN/OLIVIA DR: Suzanne TID: [id number]
[2021-05-01 15:00] VITALS: BP 120/83
[2021-05-01] MEDS: ENOXAPARIN 40 MG/0.4 ML SYRINGE. SQ SCH (17:29)
[2021-05-01 19:00] VITALS: BP 134/88
[2021-05-01] MEDS: ASCORBIC ACID 500 MG TABLET PO SCH (20:14)
[2021-05-01] MEDS: ZOLPIDEM 5 MG TABLET. PO PRN (21:35)
[2021-05-01] MEDS: guaiFENesin/CODEINE 100mg/10mg 5 ML LIQUID PO PRN (22:20)
[2021-05-01 23:00] VITALS: BP 133/91
[2021-05-02 01:08] LABS: HEMOGLOBIN A1C 5.9 % (4.8-5.6)
[2021-05-02 07:00] VITALS: BP 118/97
--- NOTE | 2021-05-02 07:29 | PDOC ---
[facility] PROGRESS NOTE Date of Service DOS: DATE: 05/02/21 TIME: 07:28 Chief Complaint Chief Complaint Acute respiratory failure with hypoxemia COVID-19 pneumonia Hypokalemia Hyperglycemia HTN Plan: After discussion with treatment options with patient, she would prefer not to stay hospitalized for 5 days to receive remdesivir. Given elevated CRP and risk factors for progression to severe respiratory disease, will consult pulmonology. Continue with Decadron 6 mg daily, remdesivir, and Tocilizumab We will obtain 6-minute walk to evaluate for home O2 requirements Hemoglobin A1c pending Supportive care FEN - Cardiac diet PPX - Lovenox FULL CODE Dispo - inpatient for above History of Present Illness History of Present Illness Patient is a 40-year-old female with past medical history HTN, presents to the ED with complaints of worsening shortness of breath over the past several days prior to arrival. She reports associated sore throat, cough, muscle aches, headache, fatigue, fever/chills. Symptoms started 04/26/21, and she was tested for COVID-19 04/28/21 and called about positive COVID 19 test results on 04/29/2021. Her symptoms have worsened. Upon arrival in the ED ABG was obtained that showed PO2 52 and she was subsequently placed on 4 L nasal cannula. Labs on admission showed potassium of 3.0, AST 57, ALT 55, Glucose 128. Chest x-ray showed mild bibasilar lung airspace opacities likely atelectasis or infiltrates. She received broad-spectrum antibiotics, fluids, and Decadron in the ED. Admitted patient for further medical management. Afebrile overnight. O2 saturations 91% on 2 L nasal cannula oxygen. She says her appetite is increasing a little bit still with severe cough and shortness of breath on exertion. Status post remdesivir and tocilizumab. Pulmonology c onsulted. She is contemplating going home, offered a 6 minute walk test and 8 additional days of steroids. Vitals/I&O Vitals/I&O: Vital Signs Date Time Temp Pulse Resp B/P (MAP) Pulse Ox O2 Delivery O2 Flow Rate FiO2 05/01/21 23:00 98.9 84 20 133/91 (105) 100 Nasal Cannula 2.0 98.9 I & O 05/01/21 05/01/21 05/02/21 15:00 23:00 07:00 Intake Total 2250 ml 400 ml 120 ml Balance 2250 ml 400 ml 120 ml Physical Exam General: Alert, Oriented X3, Cooperative Heart: Regular rate, Normal S1, Normal S2 Abdomen: Normal bowel sounds, Soft Extremities: No clubbing, No cyanosis Skin: No rashes, No breakdown Labs Labs: Laboratory Tests Test 05/01/21 09:15 05/01/21 09:45 05/01/21 10:45 05/01/21 10:53 White Blood Count 5.4 x10^3/uL (4.0-11.0) Red Blood Count 4.03 x10^6/uL (3.50-5.40) Hemoglobin 13.4 g/dL (12.0-15.5) Hematocrit 37.8 % (36.0-47.0) Mean Corpuscular Volume 94 fL (79-100) Mean Corpuscular Hemoglobin 33 pg (25-35) Mean Corpuscular Hemoglobin Concent 35 g/dL (31-37) Red Cell Distribution Width 12.7 % (11.5-14.5) Platelet Count 205 x10^3/uL (140-400) Neutrophils (%) (Auto) 74 % (31-73) Lymphocytes (%) (Auto) 18 % (24-48) Monocytes (%) (Auto) 8 % (0-9) Eosinophils (%) (Auto) 0 % (0-3) Basophils (%) (Auto) 0 % (0-3) Neutrophils # (Auto) 4.0 x10^3/uL (1.8-7.7) Lymphocytes # (Auto) 1.0 x10^3/uL (1.0-4.8) Monocytes # (Auto) 0.4 x10^3/uL (0.0-1.1) Eosinophils # (Auto) 0.0 x10^3/uL (0.0-0.7) Basophils # (Auto) 0.0 x10^3/uL (0.0-0.2) D-Dimer (Samantha) 0.40 ug/mlFEU (0.00-0.50) Sodium Level 136 mmol/L (136-145) Potassium Level 3.0 mmol/L (3.5-5.1) Chloride Level 95 mmol/L (98-107) Carbon Dioxide Level 31 mmol/L (21-32) Anion Gap 10 (6-14) Blood Urea Nitrogen 4 mg/dL (7-20) Creatinine 0.9 mg/dL (0.6-1.0) Estimated GFR (Cockcroft-Gault) 84.3 BUN/Creatinine Ratio 4 (6-20) Glucose Level 128 mg/dL (70-99) Hemoglobin A1c 5.9 % (4.8-5.6) Lactic Acid Level 1.5 mmol/L (0.4-2.0) Calcium Level 8.4 mg/dL (8.5-10.1) Magnesium Level 2.1 mg/dL (1.8-2.4) Ferritin 509 ng/mL (8-252) Total Bilirubin 0.2 mg/dL (0.2-1.0) Aspartate Amino Transf (AST/SGOT) 57 U/L (15-37) Alanine Aminotransferase (ALT/SGPT) 55 U/L (14-59) Alkaline Phosphatase 74 U/L (46-116) Lactate Dehydrogenase 330 U/L (81-234) Troponin I Quantitative < 0.017 ng/mL (0.000-0.055) C-Reactive Protein, Quantitative 75.5 mg/L (0-3.3) II-Vcv-J-Type Natriuretic Peptide 7 pg/mL (0-124) Total Protein 7.8 g/dL (6.4-8.2) Albumin 3.5 g/dL (3.4-5.0) Albumin/Globulin Ratio 0.8 (1.0-1.7) Bedside Urine HCG, Qualitative Hcg negative (Negative) O2 Saturation 85 % (92-99) Arterial Blood pH 7.41 (7.35-7.45) Arterial Blood pCO2 at Patient Temp 42 mmHg (35-46) Arterial Blood pO2 at Patient Temp 52 mmHg (75-108) Arterial Blood HCO3 27 mmol/L (21-28) Arterial Blood Base Excess 2 mmol/L (-3-3) Oxyhemoglobin 84.3 % Methemoglobin 0.5 % (0.0-1.9) Carbon Monoxide, Quantitative 0.3 % (0.0-1.9) FiO2 21 Urine Collection Type Void Urine Color Yellow Urine Clarity Clear Urine pH 6.0 (<5.0-8.0) Urine Specific [place] <=1.005 (1.000-1.030) Urine Protein Negative mg/dL (NEG-TRACE) Urine Glucose (UA) Negative mg/dL (NEG) Urine Ketones (Stick) Negative mg/dL (NEG) Urine Blood Moderate (NEG) Urine Nitrite Negative (NEG) Urine Bilirubin Negative (NEG) Urine Urobilinogen Dipstick 0.2 mg/dL (0.2 mg/dL) Urine Leukocyte Esterase Negative (NEG) Urine RBC 3-5 /HPF (0-2) Urine WBC 0 /HPF (0-4) Urine Squamous Epithelial Cells Few /LPF Urine Bacteria 0 /HPF (0-FEW) Urine Mucus Slight /LPF Assessment and Plan Assessmemt and Plan Problems Medical Problems: (1) COVID-19 Status: Acute (2) Hypoxia Status: Acute (3) Pneumonia Status: Acute Comment Review of Relevant I have reviewed the following items tre (where applicable) has been applied. Medications: Current Medications Medications (Trade) Dose Ordered Sig/Isabela Route PRN Reason Start Time Stop Time Status Last Admin Dose Admin Dexamethasone Sodium Phosphate (Decadron) 10 mg 1X ONCE IV 05/01/21 09:15 05/01/21 09:17 DC 05/01/21 09:33 Acetaminophen (Tylenol) 1,000 mg 1X ONCE PO 05/01/21 09:15 05/01/21 09:17 DC 05/01/21 09:33 Sodium Chloride 1,000 ml @ 1,000 mls/hr 1X ONCE IV 05/01/21 09:15 05/01/21 10:14 DC 05/01/21 09:29 Sodium Chloride 1,000 ml @ 1,000 mls/hr 1X ONCE IV 05/01/21 09:15 05/01/21 10:14 DC 05/01/21 09:30 Ketorolac Tromethamine (Toradol 30mg Vial) 30 mg 1X ONCE IVP 05/01/21 09:45 05/01/21 09:46 DC 05/01/21 09:58 Ondansetron HCl (Zofran) 4 mg 1X ONCE IVP 05/01/21 09:45 05/01/21 09:46 DC 05/01/21 09:53 Azithromycin 250 ml @ 250 mls/hr 1X ONCE IV 05/01/21 10:00 05/01/21 10:59 DC 05/01/21 11:41 Ceftriaxone Sodium (Rocephin) 1 gm 1X ONCE IVP 05/01/21 10:00 05/01/21 10:02 DC 05/01/21 11:40 Potassium Chloride (Klor-Con) 40 meq 1X ONCE PO 05/01/21 10:45 05/01/21 10:46 DC 05/01/21 11:39 Remdesivir 200 mg/ Sodium Chloride 210 ml @ 210 mls/hr 1X ONCE IV 05/01/21 14:00 05/01/21 14:59 DC 05/01/21 17:14 Tocilizumab 640 mg/Sodium Chloride 100 ml @ 100 mls/hr 1X ONCE IV 05/01/21 14:00 05/01/21 14:59 DC 05/01/21 17:30 Ascorbic Acid (Vitamin C) 500 mg BID PO 05/01/21 21:00 05/15/21 20:59 05/01/21 20:14 Guaifenesin/ Codeine Phosphate (Robitussin Ac) 5 ml PRN Q6HRS PRN PO COUGH 05/01/21 13:00 05/01/21 22:20 Zolpidem Tartrate (Ambien) 5 mg PRN QHS PRN PO INSOMNIA, MAY REPEAT IN 1HR 05/01/21 13:15 05/01/21 21:35 Enoxaparin Sodium (Lovenox 40mg Syringe) 40 mg Q24H SQ 05/01/21 14:00 05/01/21 17:29 Justifications for Admission General Conditions Other justification for admit: Acute respiratory failure with hypoxemia, COVID-19 pneumonia Other Justification LAKHWINDER FARIA MD May 02, 2021 07:29
--- NOTE | 2021-05-02 08:49 | PDOC ---
PULMONARY PROGRESS NOTES DATE: 05/02/21 TIME: 08:49 Subjective Patient at times feels slightly more short of air otherwise pretty stable Vitals Vital Signs Date Time Temp Pulse Resp B/P (MAP) Pulse Ox O2 Delivery O2 Flow Rate FiO2 05/02/21 07:00 96.3 101 18 118/97 (104) 97 Nasal Cannula 2.0 96.3 ROS: No Nausea, No Chest Pain, No Abdominal Pain, No Increase Cough General: Alert Lungs: Crackles Cardiovascular: S1, S2 Abdomen: Soft Neuro Exam: Alert Extremities: No Edema Skin: Warm Labs Laboratory Tests Test 05/01/21 09:15 05/01/21 09:45 05/01/21 10:45 05/01/21 10:53 White Blood Count 5.4 x10^3/uL (4.0-11.0) Red Blood Count 4.03 x10^6/uL (3.50-5.40) Hemoglobin 13.4 g/dL (12.0-15.5) Hematocrit 37.8 % (36.0-47.0) Mean Corpuscular Volume 94 fL (79-100) Mean Corpuscular Hemoglobin 33 pg (25-35) Mean Corpuscular Hemoglobin Concent 35 g/dL (31-37) Red Cell Distribution Width 12.7 % (11.5-14.5) Platelet Count 205 x10^3/uL (140-400) Neutrophils (%) (Auto) 74 % (31-73) Lymphocytes (%) (Auto) 18 % (24-48) Monocytes (%) (Auto) 8 % (0-9) Eosinophils (%) (Auto) 0 % (0-3) Basophils (%) (Auto) 0 % (0-3) Neutrophils # (Auto) 4.0 x10^3/uL (1.8-7.7) Lymphocytes # (Auto) 1.0 x10^3/uL (1.0-4.8) Monocytes # (Auto) 0.4 x10^3/uL (0.0-1.1) Eosinophils # (Auto) 0.0 x10^3/uL (0.0-0.7) Basophils # (Auto) 0.0 x10^3/uL (0.0-0.2) D-Dimer (Samantha) 0.40 ug/mlFEU (0.00-0.50) Sodium Level 136 mmol/L (136-145) Potassium Level 3.0 mmol/L (3.5-5.1) Chloride Level 95 mmol/L (98-107) Carbon Dioxide Level 31 mmol/L (21-32) Anion Gap 10 (6-14) Blood Urea Nitrogen 4 mg/dL (7-20) Creatinine 0.9 mg/dL (0.6-1.0) Estimated GFR (Cockcroft-Gault) 84.3 BUN/Creatinine Ratio 4 (6-20) Glucose Level 128 mg/dL (70-99) Hemoglobin A1c 5.9 % (4.8-5.6) Lactic Acid Level 1.5 mmol/L (0.4-2.0) Calcium Level 8.4 mg/dL (8.5-10.1) Magnesium Level 2.1 mg/dL (1.8-2.4) Ferritin 509 ng/mL (8-252) Total Bilirubin 0.2 mg/dL (0.2-1.0) Aspartate Amino Transf (AST/SGOT) 57 U/L (15-37) Alanine Aminotransferase (ALT/SGPT) 55 U/L (14-59) Alkaline Phosphatase 74 U/L (46-116) Lactate Dehydrogenase 330 U/L (81-234) Troponin I Quantitative < 0.017 ng/mL (0.000-0.055) C-Reactive Protein, Quantitative 75.5 mg/L (0-3.3) DI-Phf-S-Type Natriuretic Peptide 7 pg/mL (0-124) Total Protein 7.8 g/dL (6.4-8.2) Albumin 3.5 g/dL (3.4-5.0) Albumin/Globulin Ratio 0.8 (1.0-1.7) Bedside Urine HCG, Qualitative Hcg negative (Negative) O2 Saturation 85 % (92-99) Arterial Blood pH 7.41 (7.35-7.45) Arterial Blood pCO2 at Patient Temp 42 mmHg (35-46) Arterial Blood pO2 at Patient Temp 52 mmHg (75-108) Arterial Blood HCO3 27 mmol/L (21-28) Arterial Blood Base Excess 2 mmol/L (-3-3) Oxyhemoglobin 84.3 % Methemoglobin 0.5 % (0.0-1.9) Carbon Monoxide, Quantitative 0.3 % (0.0-1.9) FiO2 21 Urine Collection Type Void Urine Color Yellow Urine Clarity Clear Urine pH 6.0 (<5.0-8.0) Urine Specific [place] <=1.005 (1.000-1.030) Urine Protein Negative mg/dL (NEG-TRACE) Urine Glucose (UA) Negative mg/dL (NEG) Urine Ketones (Stick) Negative mg/dL (NEG) Urine Blood Moderate (NEG) Urine Nitrite Negative (NEG) Urine Bilirubin Negative (NEG) Urine Urobilinogen Dipstick 0.2 mg/dL (0.2 mg/dL) Urine Leukocyte Esterase Negative (NEG) Urine RBC 3-5 /HPF (0-2) Urine WBC 0 /HPF (0-4) Urine Squamous Epithelial Cells Few /LPF Urine Bacteria 0 /HPF (0-FEW) Urine Mucus Slight /LPF Laboratory Tests Test 05/01/21 09:15 05/01/21 09:45 05/01/21 10:45 05/01/21 10:53 White Blood Count 5.4 x10^3/uL (4.0-11.0) Red Blood Count 4.03 x10^6/uL (3.50-5.40) Hemoglobin 13.4 g/dL (12.0-15.5) Hematocrit 37.8 % (36.0-47.0) Mean Corpuscular Volume 94 fL (79-100) Mean Corpuscular Hemoglobin 33 pg (25-35) Mean Corpuscular Hemoglobin Concent 35 g/dL (31-37) Red Cell Distribution Width 12.7 % (11.5-14.5) Platelet Count 205 x10^3/uL (140-400) Neutrophils (%) (Auto) 74 % (31-73) Lymphocytes (%) (Auto) 18 % (24-48) Monocytes (%) (Auto) 8 % (0-9) Eosinophils (%) (Auto) 0 % (0-3) Basophils (%) (Auto) 0 % (0-3) Neutrophils # (Auto) 4.0 x10^3/uL (1.8-7.7) Lymphocytes # (Auto) 1.0 x10^3/uL (1.0-4.8) Monocytes # (Auto) 0.4 x10^3/uL (0.0-1.1) Eosinophils # (Auto) 0.0 x10^3/uL (0.0-0.7) Basophils # (Auto) 0.0 x10^3/uL (0.0-0.2) D-Dimer (Samantha) 0.40 ug/mlFEU (0.00-0.50) Sodium Level 136 mmol/L (136-145) Potassium Level 3.0 mmol/L (3.5-5.1) Chloride Level 95 mmol/L (98-107) Carbon Dioxide Level 31 mmol/L (21-32) Anion Gap 10 (6-14) Blood Urea Nitrogen 4 mg/dL (7-20) Creatinine 0.9 mg/dL (0.6-1.0) Estimated GFR (Cockcroft-Gault) 84.3 BUN/Creatinine Ratio 4 (6-20) Glucose Level 128 mg/dL (70-99) Hemoglobin A1c 5.9 % (4.8-5.6) Lactic Acid Level 1.5 mmol/L (0.4-2.0) Calcium Level 8.4 mg/dL (8.5-10.1) Magnesium Level 2.1 mg/dL (1.8-2.4) Ferritin 509 ng/mL (8-252) Total Bilirubin 0.2 mg/dL (0.2-1.0) Aspartate Amino Transf (AST/SGOT) 57 U/L (15-37) Alanine Aminotransferase (ALT/SGPT) 55 U/L (14-59) Alkaline Phosphatase 74 U/L (46-116) Lactate Dehydrogenase 330 U/L (81-234) Troponin I Quantitative < 0.017 ng/mL (0.000-0.055) C-Reactive Protein, Quantitative 75.5 mg/L (0-3.3) II-Jjz-M-Type Natriuretic Peptide 7 pg/mL (0-124) Total Protein 7.8 g/dL (6.4-8.2) Albumin 3.5 g/dL (3.4-5.0) Albumin/Globulin Ratio 0.8 (1.0-1.7) Bedside Urine HCG, Qualitative Hcg negative (Negative) O2 Saturation 85 % (92-99) Arterial Blood pH 7.41 (7.35-7.45) Arterial Blood pCO2 at Patient Temp 42 mmHg (35-46) Arterial Blood pO2 at Patient Temp 52 mmHg (75-108) Arterial Blood HCO3 27 mmol/L (21-28) Arterial Blood Base Excess 2 mmol/L (-3-3) Oxyhemoglobin 84.3 % Methemoglobin 0.5 % (0.0-1.9) Carbon Monoxide, Quantitative 0.3 % (0.0-1.9) FiO2 21 Urine Collection Type Void Urine Color Yellow Urine Clarity Clear Urine pH 6.0 (<5.0-8.0) Urine Specific Sanderson <=1.005 (1.000-1.030) Urine Protein Negative mg/dL (NEG-TRACE) Urine Glucose (UA) Negative mg/dL (NEG) Urine Ketones (Stick) Negative mg/dL (NEG) Urine Blood Moderate (NEG) Urine Nitrite Negative (NEG) Urine Bilirubin Negative (NEG) Urine Urobilinogen Dipstick 0.2 mg/dL (0.2 mg/dL) Urine Leukocyte Esterase Negative (NEG) Urine RBC 3-5 /HPF (0-2) Urine WBC 0 /HPF (0-4) Urine Squamous Epithelial Cells Few /LPF Urine Bacteria 0 /HPF (0-FEW) Urine Mucus Slight /LPF Medications Active Scripts Medications Dose Route/Sig Max Daily Dose Days Date Category Prednisone 20 Mg Tablet 3 Tab PO DAILY PRN 5 12/13/19 Rx Orphenadrine Citrate 100 Mg Tablet.er 1 Tab PO BID PRN 5 03/14/19 Rx Ibuprofen 400 Mg Tablet 400 Mg PO PRN Q6HRS PRN 5 03/14/19 Rx Impression . IMPRESSION: 1. Acute hypoxemic respiratory failure secondary to COVID-19 viral pneumonia. 2. COVID-19 viral pneumonia. 3. Fever secondary to above. 4. Obesity. 5. Hypertension. Plan . Updated 05/02 status post remdesivir and tocilizumab Continue oxygen supplementation Dexamethasone We will monitor, if continues to improve and stabilize, anticipate discharge on 05/03 05/03 PLAN: The patient at risk for progression of her COVID-19, we will proceed with IV remdesivir, IV tocilizumab. Her C-reactive protein was 75. Continue oxygen supplementation. DVT prophylaxis. Monitor closely for any deterioration. The patient initiated on ceftriaxone for possible bacterial concomitant pneumonia. Continue home medications. I do appreciate the privilege in sharing in the patient's care. LIBRA JAVIER MD May 02, 2021 08:49
[2021-05-02 09:19] LABS: ALBUMIN 3.3 g/dL (3.4-5.0); CALCIUM 8.4 mg/dL (8.5-10.1); CREATININE 0.9 mg/dL (0.6-1.0); DIRECT BILIRUBIN 0.1 mg/dL (0.0-0.2); GFR 84.3; POTASSIUM 3.4 mmol/L (3.5-5.1); TOTAL BILIRUBIN 0.2 mg/dL (0.2-1.0); TOTAL PROTEIN 7.3 g/dL (6.4-8.2)
[2021-05-02] MEDS ORDERED: POTASSIUM CHLORIDE 20 MEQ TABLET.ER. PO ONE (09:30)
[2021-05-02] MEDS: AZITHROMYCIN 250 MG TABLET. PO SCH (09:32)
[2021-05-02] MEDS: guaiFENesin/CODEINE 100mg/10mg 5 ML LIQUID PO PRN (09:32)
[2021-05-02] MEDS: DEXAMETHASONE SOD PHOS 4 MG/ML VIAL IVP SCH (09:32)
[2021-05-02] MEDS: ASCORBIC ACID 500 MG TABLET PO SCH ×2 (09:32→21:33)
[2021-05-02] MEDS: ZINC SULFATE 220 MG CAPSULE. PO SCH (09:33)
[2021-05-02] MEDS ORDERED: guaiFENesin DM 200MG/20MG 10 ML SYRUP PO PRN (10:30)
[2021-05-02] MEDS ORDERED: BENZONATATE 100 MG CAPSULE. PO ONE (10:30)
[2021-05-02] MEDS: cefTRIAXone IV Push 1 GM VIAL. IVP SCH (10:34)
[2021-05-02 11:00] VITALS: BP 121/89
[2021-05-02] MEDS: REMDESIVIR 100mg in NORMAL SALINE 250ML X 4 DAYS IV SCH (13:29)
[2021-05-02] MEDS: BENZONATATE 100 MG CAPSULE. PO SCH ×2 (13:30→21:33)
[2021-05-02] MEDS: LACTOBACILLUS RHAMNOSUS GG 1 CAPSULE. PO SCH ×2 (13:34→21:33)
[2021-05-02] MEDS: ENOXAPARIN 40 MG/0.4 ML SYRINGE. SQ SCH (13:35)
[2021-05-02 15:00] VITALS: BP 125/86
[2021-05-02 19:00] VITALS: BP 140/93
[2021-05-02] MEDS: ZOLPIDEM 5 MG TABLET. PO PRN (21:33)
[2021-05-02 23:04] VITALS: BP 138/99
[2021-05-03 03:06] VITALS: BP 132/94
--- NOTE | 2021-05-03 06:49 | PDOC ---
[employer] PROGRESS NOTE Date of Service DOS: DATE: 05/03/21 TIME: 06:49 Chief Complaint Chief Complaint Acute respiratory failure with hypoxemia COVID-19 pneumonia Hypokalemia Hyperglycemia HTN Prediabetes - A1c 5.9. start metformin therapy 500mg BID Yeast vaginitis - diflucan x1 Plan: Continue with Decadron 6 mg daily, s/p remdesivir, and Tocilizumab We will obtain 6-minute walk to evaluate for home O2 requirements Supportive care FEN - Cardiac diet PPX - Lovenox FULL CODE Dispo - inpatient for above History of Present Illness History of Present Illness Ms Quiros is a 40-year-old female with past medical history HTN, presents to the ED with complaints of worsening shortness of breath over the past several days prior to arrival. She reports associated sore throat, cough, muscle aches, headache, fatigue, fever/chills. Symptoms started 04/26/21, and she was tested for COVID-19 04/28/21 and called about positive COVID 19 test results on 04/29/2021. Her symptoms have worsened. Upon arrival in the ED ABG was obtained that showed PO2 52 and she was subsequently placed on 4 L nasal cannula. Labs on admission showed potassium of 3.0, AST 57, ALT 55, Glucose 128. Chest x-ray showed mild bibasilar lung airspace opacities likely atelectasis or infiltrates. She received broad-spectrum antibiotics, fluids, and Decadron in the ED. Admitted patient for further medical management. 05/02: Afebrile overnight. O2 saturations 91% on 2 L nasal cannula oxygen. She says her appetite is increasing a little bit still with severe cough and shortness of breath on exertion. Status post remdesivir and tocilizumab. Pulmonology consulted. She is contemplating going home, offered a 6 minute walk test and 8 additional days of steroids. Afebrile overnight. Recent 6-minute walk no desaturations below 89% with no O2 needs. Appetite increased still with an annoying cough she is requesting codeine cough syrup on discharge. She is also requesting an inhaler. Plan for 7 additional days of doxycycline and Decadron with Diflucan as needed for yeast infection Vitals/I&O Vitals/I&O: Vital Signs Date Time Temp Pulse Resp B/P (MAP) Pulse Ox O2 Delivery O2 Flow Rate FiO2 05/03/21 03:06 98.2 82 18 132/94 (107) 95 Room Air 98.2 05/02/21 15:00 2.0 I & O 05/02/21 05/02/21 05/03/21 15:00 23:00 07:00 Intake Total 540 ml 240 ml Output Total 0 ml Balance 540 ml 240 ml 0 ml Physical Exam General: Alert, Oriented X3, Cooperative Heart: Regular rate, Normal S1, Normal S2 Lungs: Crackles Abdomen: Normal bowel sounds, Soft Extremities: No clubbing, No cyanosis Skin: No rashes, No breakdown Labs Labs: Laboratory Tests Test 05/02/21 07:40 Sodium Level 140 mmol/L (136-145) Potassium Level 3.4 mmol/L (3.5-5.1) Chloride Level 100 mmol/L (98-107) Carbon Dioxide Level 29 mmol/L (21-32) Anion Gap 11 (6-14) Blood Urea Nitrogen 8 mg/dL (7-20) Creatinine 0.9 mg/dL (0.6-1.0) Estimated GFR (Cockcroft-Gault) 84.3 Glucose Level 99 mg/dL (70-99) Calcium Level 8.4 mg/dL (8.5-10.1) Total Bilirubin 0.2 mg/dL (0.2-1.0) Direct Bilirubin 0.1 mg/dL (0.0-0.2) Aspartate Amino Transf (AST/SGOT) 54 U/L (15-37) Alanine Aminotransferase (ALT/SGPT) 51 U/L (14-59) Alkaline Phosphatase 65 U/L (46-116) Total Protein 7.3 g/dL (6.4-8.2) Albumin 3.3 g/dL (3.4-5.0) Assessment and Plan Assessmemt and Plan Problems Medical Problems: (1) COVID-19 Status: Acute (2) Hypoxia Status: Acute (3) Pneumonia Status: Acute Comment Review of Relevant I have reviewed the following items tre (where applicable) has been applied. Medications: Current Medications Medications (Trade) Dose Ordered Sig/Isabela Route PRN Reason Start Time Stop Time Status Last Admin Dose Admin Remdesivir 100 mg/ Sodium Chloride 230 ml @ 460 mls/hr Q24H IV 05/02/21 14:00 05/05/21 14:29 05/02/21 13:29 Dexamethasone Sodium Phosphate (Decadron) 6 mg DAILY IVP 05/02/21 09:00 05/02/21 09:32 Zinc Sulfate (Orazinc) 440 mg DAILY PO 05/02/21 09:00 05/16/21 08:59 05/02/21 09:33 Ceftriaxone Sodium (Rocephin) 1 gm DAILY IVP 05/02/21 09:00 05/06/21 08:59 05/02/21 10:34 Azithromycin (Zithromax) 250 mg DAILY PO 05/02/21 09:00 05/06/21 08:59 05/02/21 09:32 Potassium Chloride (Klor-Con) 40 meq 1X ONCE PO 05/02/21 09:30 05/02/21 09:31 DC 05/02/21 09:39 Benzonatate (Tessalon Perle) 100 mg [id number] PO 05/02/21 14:00 05/02/21 21:33 Benzonatate (Tessalon Perle) 100 mg 1X ONCE PO 05/02/21 10:30 05/02/21 10:34 DC 05/02/21 10:35 Lactobacillus Rhamnosus (Culturelle) 1 cap BID PO 05/02/21 13:00 05/02/21 21:33 Justifications for Admission General Conditions Other justification for admit: Acute respiratory failure with hypoxemia, COVID-19 pneumonia Other Justification ALKHWINDER FARIA MD May 03, 2021 06:49
[2021-05-03 07:00] VITALS: BP 137/101
[2021-05-03 08:15] LABS: ALBUMIN 3.1 g/dL (3.4-5.0); ALBUMIN/GLOBULIN RATIO 0.8 (1.0-1.7); CALCIUM 8.2 mg/dL (8.5-10.1); CREATININE 0.9 mg/dL (0.6-1.0); DIRECT BILIRUBIN 0.1 mg/dL (0.0-0.2); GFR 84.3; POTASSIUM 3.6 mmol/L (3.5-5.1); TOTAL BILIRUBIN 0.3 mg/dL (0.2-1.0); TOTAL PROTEIN 6.9 g/dL (6.4-8.2)
--- NOTE | 2021-05-03 08:33 | PDOC ---
PULMONARY PROGRESS NOTES DATE: 05/03/21 TIME: 08:31 Subjective Patient concerned that she is short of air with exertion Off of oxygen No increasing shortness of air at rest Vitals Vital Signs Date Time Temp Pulse Resp B/P (MAP) Pulse Ox O2 Delivery O2 Flow Rate FiO2 05/03/21 07:00 98.2 77 18 137/101 (113) 97 Room Air 98.2 05/02/21 15:00 2.0 ROS: No Nausea, No Chest Pain, No Abdominal Pain, No Increase Cough General: Alert Lungs: Crackles Cardiovascular: S1, S2 Abdomen: Soft Neuro Exam: Alert Extremities: No Edema Skin: Warm Labs Laboratory Tests Test 05/01/21 09:15 05/01/21 09:45 05/01/21 10:45 05/01/21 10:53 White Blood Count 5.4 x10^3/uL (4.0-11.0) Red Blood Count 4.03 x10^6/uL (3.50-5.40) Hemoglobin 13.4 g/dL (12.0-15.5) Hematocrit 37.8 % (36.0-47.0) Mean Corpuscular Volume 94 fL (79-100) Mean Corpuscular Hemoglobin 33 pg (25-35) Mean Corpuscular Hemoglobin Concent 35 g/dL (31-37) Red Cell Distribution Width 12.7 % (11.5-14.5) Platelet Count 205 x10^3/uL (140-400) Neutrophils (%) (Auto) 74 % (31-73) Lymphocytes (%) (Auto) 18 % (24-48) Monocytes (%) (Auto) 8 % (0-9) Eosinophils (%) (Auto) 0 % (0-3) Basophils (%) (Auto) 0 % (0-3) Neutrophils # (Auto) 4.0 x10^3/uL (1.8-7.7) Lymphocytes # (Auto) 1.0 x10^3/uL (1.0-4.8) Monocytes # (Auto) 0.4 x10^3/uL (0.0-1.1) Eosinophils # (Auto) 0.0 x10^3/uL (0.0-0.7) Basophils # (Auto) 0.0 x10^3/uL (0.0-0.2) D-Dimer (Samantha) 0.40 ug/mlFEU (0.00-0.50) Sodium Level 136 mmol/L (136-145) Potassium Level 3.0 mmol/L (3.5-5.1) Chloride Level 95 mmol/L (98-107) Carbon Dioxide Level 31 mmol/L (21-32) Anion Gap 10 (6-14) Blood Urea Nitrogen 4 mg/dL (7-20) Creatinine 0.9 mg/dL (0.6-1.0) Estimated GFR (Cockcroft-Gault) 84.3 BUN/Creatinine Ratio 4 (6-20) Glucose Level 128 mg/dL (70-99) Hemoglobin A1c 5.9 % (4.8-5.6) Lactic Acid Level 1.5 mmol/L (0.4-2.0) Calcium Level 8.4 mg/dL (8.5-10.1) Magnesium Level 2.1 mg/dL (1.8-2.4) Ferritin 509 ng/mL (8-252) Total Bilirubin 0.2 mg/dL (0.2-1.0) Aspartate Amino Transf (AST/SGOT) 57 U/L (15-37) Alanine Aminotransferase (ALT/SGPT) 55 U/L (14-59) Alkaline Phosphatase 74 U/L (46-116) Lactate Dehydrogenase 330 U/L (81-234) Troponin I Quantitative < 0.017 ng/mL (0.000-0.055) C-Reactive Protein, Quantitative 75.5 mg/L (0-3.3) BY-Drd-W-Type Natriuretic Peptide 7 pg/mL (0-124) Total Protein 7.8 g/dL (6.4-8.2) Albumin 3.5 g/dL (3.4-5.0) Albumin/Globulin Ratio 0.8 (1.0-1.7) Bedside Urine HCG, Qualitative Hcg negative (Negative) O2 Saturation 85 % (92-99) Arterial Blood pH 7.41 (7.35-7.45) Arterial Blood pCO2 at Patient Temp 42 mmHg (35-46) Arterial Blood pO2 at Patient Temp 52 mmHg (75-108) Arterial Blood HCO3 27 mmol/L (21-28) Arterial Blood Base Excess 2 mmol/L (-3-3) Oxyhemoglobin 84.3 % Methemoglobin 0.5 % (0.0-1.9) Carbon Monoxide, Quantitative 0.3 % (0.0-1.9) FiO2 21 Urine Collection Type Void Urine Color Yellow Urine Clarity Clear Urine pH 6.0 (<5.0-8.0) Urine Specific [place] <=1.005 (1.000-1.030) Urine Protein Negative mg/dL (NEG-TRACE) Urine Glucose (UA) Negative mg/dL (NEG) Urine Ketones (Stick) Negative mg/dL (NEG) Urine Blood Moderate (NEG) Urine Nitrite Negative (NEG) Urine Bilirubin Negative (NEG) Urine Urobilinogen Dipstick 0.2 mg/dL (0.2 mg/dL) Urine Leukocyte Esterase Negative (NEG) Urine RBC 3-5 /HPF (0-2) Urine WBC 0 /HPF (0-4) Urine Squamous Epithelial Cells Few /LPF Urine Bacteria 0 /HPF (0-FEW) Urine Mucus Slight /LPF Test 05/02/21 07:40 05/03/21 07:30 Sodium Level 140 mmol/L (136-145) 139 mmol/L (136-145) Potassium Level 3.4 mmol/L (3.5-5.1) 3.6 mmol/L (3.5-5.1) Chloride Level 100 mmol/L (98-107) 101 mmol/L (98-107) Carbon Dioxide Level 29 mmol/L (21-32) 31 mmol/L (21-32) Anion Gap 11 (6-14) 7 (6-14) Blood Urea Nitrogen 8 mg/dL (7-20) 12 mg/dL (7-20) Creatinine 0.9 mg/dL (0.6-1.0) 0.9 mg/dL (0.6-1.0) Estimated GFR (Cockcroft-Gault) 84.3 84.3 Glucose Level 99 mg/dL (70-99) 92 mg/dL (70-99) Calcium Level 8.4 mg/dL (8.5-10.1) 8.2 mg/dL (8.5-10.1) Total Bilirubin 0.2 mg/dL (0.2-1.0) 0.3 mg/dL (0.2-1.0) Direct Bilirubin 0.1 mg/dL (0.0-0.2) 0.1 mg/dL (0.0-0.2) Aspartate Amino Transf (AST/SGOT) 54 U/L (15-37) 66 U/L (15-37) Alanine Aminotransferase (ALT/SGPT) 51 U/L (14-59) 57 U/L (14-59) Alkaline Phosphatase 65 U/L (46-116) 61 U/L (46-116) Total Protein 7.3 g/dL (6.4-8.2) 6.9 g/dL (6.4-8.2) Albumin 3.3 g/dL (3.4-5.0) 3.1 g/dL (3.4-5.0) BUN/Creatinine Ratio 13 (6-20) Albumin/Globulin Ratio 0.8 (1.0-1.7) Laboratory Tests Test 05/03/21 07:30 Sodium Level 139 mmol/L (136-145) Potassium Level 3.6 mmol/L (3.5-5.1) Chloride Level 101 mmol/L (98-107) Carbon Dioxide Level 31 mmol/L (21-32) Anion Gap 7 (6-14) Blood Urea Nitrogen 12 mg/dL (7-20) Creatinine 0.9 mg/dL (0.6-1.0) Estimated GFR (Cockcroft-Gault) 84.3 BUN/Creatinine Ratio 13 (6-20) Glucose Level 92 mg/dL (70-99) Calcium Level 8.2 mg/dL (8.5-10.1) Total Bilirubin 0.3 mg/dL (0.2-1.0) Direct Bilirubin 0.1 mg/dL (0.0-0.2) Aspartate Amino Transf (AST/SGOT) 66 U/L (15-37) Alanine Aminotransferase (ALT/SGPT) 57 U/L (14-59) Alkaline Phosphatase 61 U/L (46-116) Total Protein 6.9 g/dL (6.4-8.2) Albumin 3.1 g/dL (3.4-5.0) Albumin/Globulin Ratio 0.8 (1.0-1.7) Medications Active Scripts Medications Dose Route/Sig Max Daily Dose Days Date Category Prednisone 20 Mg Tablet 3 Tab PO DAILY PRN 5 12/13/19 Rx Orphenadrine Citrate 100 Mg Tablet.er 1 Tab PO BID PRN 5 03/14/19 Rx Ibuprofen 400 Mg Tablet 400 Mg PO PRN Q6HRS PRN 5 03/14/19 Rx Impression . IMPRESSION: 1. Acute hypoxemic respiratory failure secondary to COVID-19 viral pneumonia. 2. COVID-19 viral pneumonia. 3. Fever secondary to above. 4. Obesity. 5. Hypertension. Plan . Updated 05/03 Patient okay to discharge 6-minute walk Patient reassured that she will improve with time it may take up to several months Follow-up with PCP in 1 to 2 weeks, PCP could make judgment call on timing of returning to work Follow-up with me in June updated 05/02 status post remdesivir and tocilizumab Continue oxygen supplementation Dexamethasone We will monitor, if continues to improve and stabilize, anticipate discharge on 05/03 LIBRA JAVIER MD May 03, 2021 08:33
[2021-05-03] MEDS: LACTOBACILLUS RHAMNOSUS GG 1 CAPSULE. PO SCH (08:49)
[2021-05-03] MEDS: ZINC SULFATE 220 MG CAPSULE. PO SCH (08:49)
[2021-05-03] MEDS: BENZONATATE 100 MG CAPSULE. PO SCH ×2 (08:49→14:43)
[2021-05-03] MEDS: cefTRIAXone IV Push 1 GM VIAL. IVP SCH (08:49)
[2021-05-03] MEDS: AZITHROMYCIN 250 MG TABLET. PO SCH (08:50)
[2021-05-03] MEDS: ASCORBIC ACID 500 MG TABLET PO SCH (08:50)
[2021-05-03] MEDS: DEXAMETHASONE SOD PHOS 4 MG/ML VIAL IVP SCH (08:51)
[2021-05-03 11:00] VITALS: BP 143/102
[2021-05-03] MEDS ORDERED: GUAI120L35 PO (12:13)
[2021-05-03] MEDS ORDERED: DOXY100C3 PO (12:13)
[2021-05-03] MEDS ORDERED: DEXA6TAB6 PO (12:13)
[2021-05-03] MEDS ORDERED: FLUC150T PO (12:15)
--- NOTE | 2021-05-03 12:25 | PDOC3 ---
Discharge Summary Visit Information Date of Admission: May 01, 2021 Date of Discharge: May 03, 2021 Admitting Diagnosis: COVID 19 with hypoxic respiratory failure Final Diagnosis Problems Medical Problems: (1) COVID-19 Status: Acute (2) Hypoxia Status: Acute (3) Pneumonia Status: Acute Brief Hospital Course Allergies Allergies Coded Allergies Type Severity Reaction Last Updated Verified No Known Drug Allergies 03/14/19 No Vital Signs Vital Signs Date Time Temp Pulse Resp B/P (MAP) Pulse Ox O2 Delivery O2 Flow Rate FiO2 05/03/21 11:00 98.4 81 18 143/102 (116) 98 Room Air 98.4 05/02/21 15:00 2.0 Lab Results Laboratory Tests Test 05/02/21 07:40 05/03/21 07:30 Sodium Level 140 mmol/L (136-145) 139 mmol/L (136-145) Potassium Level 3.4 mmol/L (3.5-5.1) 3.6 mmol/L (3.5-5.1) Chloride Level 100 mmol/L (98-107) 101 mmol/L (98-107) Carbon Dioxide Level 29 mmol/L (21-32) 31 mmol/L (21-32) Anion Gap 11 (6-14) 7 (6-14) Blood Urea Nitrogen 8 mg/dL (7-20) 12 mg/dL (7-20) Creatinine 0.9 mg/dL (0.6-1.0) 0.9 mg/dL (0.6-1.0) Estimated GFR (Cockcroft-Gault) 84.3 84.3 Glucose Level 99 mg/dL (70-99) 92 mg/dL (70-99) Calcium Level 8.4 mg/dL (8.5-10.1) 8.2 mg/dL (8.5-10.1) Total Bilirubin 0.2 mg/dL (0.2-1.0) 0.3 mg/dL (0.2-1.0) Direct Bilirubin 0.1 mg/dL (0.0-0.2) 0.1 mg/dL (0.0-0.2) Aspartate Amino Transf (AST/SGOT) 54 U/L (15-37) 66 U/L (15-37) Alanine Aminotransferase (ALT/SGPT) 51 U/L (14-59) 57 U/L (14-59) Alkaline Phosphatase 65 U/L (46-116) 61 U/L (46-116) Total Protein 7.3 g/dL (6.4-8.2) 6.9 g/dL (6.4-8.2) Albumin 3.3 g/dL (3.4-5.0) 3.1 g/dL (3.4-5.0) BUN/Creatinine Ratio 13 (6-20) Albumin/Globulin Ratio 0.8 (1.0-1.7) Laboratory Tests Test 05/03/21 07:30 Sodium Level 139 mmol/L (136-145) Potassium Level 3.6 mmol/L (3.5-5.1) Chloride Level 101 mmol/L (98-107) Carbon Dioxide Level 31 mmol/L (21-32) Anion Gap 7 (6-14) Blood Urea Nitrogen 12 mg/dL (7-20) Creatinine 0.9 mg/dL (0.6-1.0) Estimated GFR (Cockcroft-Gault) 84.3 BUN/Creatinine Ratio 13 (6-20) Glucose Level 92 mg/dL (70-99) Calcium Level 8.2 mg/dL (8.5-10.1) Total Bilirubin 0.3 mg/dL (0.2-1.0) Direct Bilirubin 0.1 mg/dL (0.0-0.2) Aspartate Amino Transf (AST/SGOT) 66 U/L (15-37) Alanine Aminotransferase (ALT/SGPT) 57 U/L (14-59) Alkaline Phosphatase 61 U/L (46-116) Total Protein 6.9 g/dL (6.4-8.2) Albumin 3.1 g/dL (3.4-5.0) Albumin/Globulin Ratio 0.8 (1.0-1.7) Brief Hospital Course Ms Quiros is a 40-year-old female with past medical history HTN, presents to the ED with complaints of worsening shortness of breath over the past several days prior to arrival. She reports associated sore throat, cough, muscle aches, headache, fatigue, fever/chills. Symptoms started 04/26/21, and she was tested for COVID-19 04/28/21 and called about positive COVID 19 test results on 04/29/2021. Her symptoms have worsened. Upon arrival in the ED ABG was obtained that showed PO2 52 and she was subsequently placed on 4 L nasal cannula. Labs on admission showed potassium of 3.0, AST 57, ALT 55, Glucose 128. Chest x-ray showed mild bibasilar lung airspace opacities likely atelectasis or infiltrates. She received broad-spectrum antibiotics, fluids, and Decadron in the ED. Admitted patient for further medical management. 05/02: Afebrile overnight. O2 saturations 91% on 2 L nasal cannula oxygen. She says her appetite is increasing a little bit still with severe cough and shortness of breath on exertion. Status post remdesivir and tocilizumab. Pulmonology consulted. She is contemplating going home, offered a 6 minute walk test and 8 additional days of steroids. 05/03: Day of discharge. Afebrile overnight. Recent 6-minute walk no desaturations below 89% with no O2 needs. Appetite increased still with an annoying cough she is requesting codeine cough syrup on discharge. She is also requesting an inhaler. Plan for 7 additional days of doxycycline and Decadron with Diflucan as needed for yeast infection Overall 3 total doses of remdesivir and tocilizumab x1. Appreciate pulmonology consultation. Strict instructions to return if symptoms worsen. Consults: Pulmonology. Problem list: Acute respiratory failure with hypoxemia COVID-19 pneumonia Hypokalemia Hyperglycemia HTN Prediabetes - A1c 5.9. start metformin therapy 500mg BID Yeast vaginitis - diflucan x1 Greater than 30 minutes spent on d/c home Discharge Information Condition at Discharge: Improved Follow Up: Weeks (1) Disposition/Orders: D/C to Home Scheduled Dexamethasone (Decadron) 6 Mg Tablet, 6 MG PO DAILY for COVID 19 for 7 Days, #7 Prescribed by: LAKHWINDER FARIA MD on 05/03/21 1213 Doxycycline Hyclate (Doxycycline Hyclate) 100 Mg Capsule, 1 CAP PO BID for Pneumonia/Bronchitis for 7 Days, #14 Prescribed by: LAKHWINDER FARIA MD on 05/03/21 1213 Fluconazole (Diflucan) 150 Mg Tablet, 1 TAB PO ONCE for Yeast vaginitis for 1 Days, #1 Ref 1 Prescribed by: LAKHWINDER FARIA MD on 05/03/21 1215 Scheduled PRN Guaifenesin/Codeine Phosphate (Codeine-Guaifen 10-100 mg/5 ml) 120 Ml Liquid, 5 ML PO PRN Q6HRS PRN for cough and congestion MDD 20 Milliliter(s) for 6 Days, #120 Ref 0 Prescribed by: LAKHWINDER FARIA MD on 05/03/21 1215 Ibuprofen (Ibuprofen) 400 Mg Tablet, 400 MG PO PRN Q6HRS PRN for INFLAMMATION for 5 Days, #20 Prescribed by: ANTONINA BALDERAS APRN on 03/14/19 1555 Discontinued Medications Orphenadrine Citrate (Orphenadrine Citrate) 100 Mg Tablet.er, 1 TAB PO BID PRN for MUSCLE SPASMS for 5 Days, #10 Prescribed by: ANTONINA BALDERAS APRN on 03/14/19 1555 Last Action: Converted on 05/01/21 1300 by SHYANN WU MD Prednisone (Prednisone) 20 Mg Tablet, 3 TAB PO DAILY PRN for COUGH for 5 Days, #15 Prescribed by: MINAL HERNANDEZ D.O. on 12/13/19 0732 Justicifation of Admission Dx: Justifications for Admission: Justification of Admission Dx: Yes Comminuty Aquired Pneumonia: Hypoxemia LAKHWINDER FARIA MD May 03, 2021 12:25
[2021-05-03] MEDS ORDERED: METF500T16 PO (12:26)
[2021-05-03] MEDS: ENOXAPARIN 40 MG/0.4 ML SYRINGE. SQ SCH (14:00)
[2021-05-03] MEDS: REMDESIVIR 100mg in NORMAL SALINE 250ML X 4 DAYS IV SCH (14:39)
[2021-05-03] MEDS: ALBUTEROL SULFATE 8GM INHALER. INH PRN ×2 (14:40→14:50)
[2021-05-03 15:22] VITALS: BP 135/92
== END 2021-05-03 16:10 | disposition home or self-care (01) | DRG 177 ==
LOC: ER 08:52 → ED HOLD 11:28 → 5 NORTH 15:10
PROVIDERS: ADMIT Family Medicine; ATTEND Family Medicine
PROC: XW033E5 Introduction of Remdesivir Anti-infective into Peripheral Vein, Percutaneous Approach, New Technology Group 5 (ICD-10-PCS; principal; 2021-05-01)
PROC: XW033H5 Introduction of Tocilizumab into Peripheral Vein, Percutaneous Approach, New Technology Group 5 (ICD-10-PCS; 2021-05-01)
DX: U07.1 COVID-19 (principal); J12.82 Pneumonia due to coronavirus disease 2019; J96.01 Acute respiratory failure with hypoxia; B37.3 Candidiasis of vulva and vagina; E66.9 Obesity, unspecified; R73.9 Hyperglycemia, unspecified; E87.6 Hypokalemia; E89.0 Postprocedural hypothyroidism; I10 Essential (primary) hypertension; R73.03 Prediabetes; Z82.49 Family history of ischemic heart disease and other diseases of the circulatory system; Z68.31 Body mass index [BMI] 31.0-31.9, adult
CPT/HCPCS: 36415; 36600; 71045; 80048; 80053; 80076; 81001; 81025; 82248; 82728; 82805; 83036; 83605; 83615; 83735; 83880; 84484; 85025; 85379; 86140; 94618; 96365; 96375; J0456; J0696; J1100; J1650; J1885; J2405; J3262; J7030; J7050; 99285-25; G0378

== ENCOUNTER 2021-10-02 05:08 | Emergency (ER) | payer BC ==
[~2021-10-02] VITALS: Ht 162.6 cm; Wt 77.3 kg
[~2021-10-02 05:08] MED LIST changes: +DEXA6TAB6 PO; +DOXY100C3 PO; +FLUC150T PO; +GUAI120L35 PO; +METF500T16 PO
[2021-10-02] MEDS ORDERED: IV NORMAL SALINE 1000ML BAG 1,000 ML IV ONE (07:30)
[2021-10-02] MEDS ORDERED: ASPIRIN 325 MG TABLET PO ONE (07:30)
[2021-10-02] MEDS ORDERED: ONDANSETRON PF 4 MG/2 ML VIAL. IVP ONE (07:30)
[2021-10-02] MEDS ORDERED: ACETAMINOPHEN 500 MG TABLET PO ONE (07:30)
[2021-10-02 07:52] LABS: BASO % 1 % (0-3); EOS # 0.2 x10^3/uL (0.0-0.7); EOS % 3 % (0-3); HEMATOCRIT 42.1 % (36.0-47.0); LYMPH # 2.5 x10^3/uL (1.0-4.8); LYMPH % 44 % (24-48); MEAN CORPUSCULAR HEMOGLOBIN 32 pg (25-35); MEAN CORPUSCULAR HGB CONC 33 g/dL (31-37); MEAN CORPUSCULAR VOLUME 96 fL (79-100); MONO # 0.5 x10^3/uL (0.0-1.1); MONO % 8 % (0-9); NEUT # 2.5 x10^3/uL (1.8-7.7); NEUT % 45 % (31-73); PLATELET COUNT 277 x10^3/uL (140-400); RED BLOOD COUNT 4.41 x10^6/uL (3.50-5.40); RED CELL DISTRIBUTION WIDTH 12.3 % (11.5-14.5); WHITE BLOOD COUNT 5.7 x10^3/uL (4.0-11.0)
[2021-10-02 08:01] LABS: PROTHROMBIN TIME PATIENT 12.7 SEC (11.7-14.0)
[2021-10-02 08:02] LABS: PARTIAL THROMBOPLASTIN TIME 30 SEC (24-38)
[2021-10-02 08:05] LABS: CALCIUM 9.3 mg/dL (8.5-10.1); CREATININE 0.9 mg/dL (0.6-1.0); GFR 83.9; POTASSIUM 3.4 mmol/L (3.5-5.1)
[2021-10-02 08:06] LABS: ALBUMIN 4.1 g/dL (3.4-5.0); ALBUMIN/GLOBULIN RATIO 1.2 (1.0-1.7); D-DIMER < 0.27 ug/mlFEU (0.00-0.50); TOTAL BILIRUBIN 0.3 mg/dL (0.2-1.0); TOTAL PROTEIN 7.6 g/dL (6.4-8.2)
--- NOTE | 2021-10-02 08:15 | RAD ---
EXAM: XR CHEST 1V 10/02/2021 7:37 AM CLINICAL INDICATION: Chest pain COMPARISON: Chest radiograph 05/01/2021 TECHNIQUE: AP upright view of the chest FINDINGS: The heart is normal in size. The lungs are well-expanded. Opacities on the prior radiograp h have resolved. There is no consolidation, pleural effusion, or pneumothorax. A nodular opacity at t he right lung base is likely a nipple shadow. No acute osseous abnormality. IMPRESSION: No acute cardiopulmonary abnormality. Electronically signed by: Joellen Reuda MD (10/02/2021 8:12 AM) [facility]
--- NOTE | 2021-10-02 11:25 | EKG ---
[facility] [address] [place] [address] Test Date: 2021-10-02 Test Time: 05:17:01 Pat Name: TERENCE WHITE Department: Room: Gender: F [place]: : 1980 Requested By: CALI HUBBARD Order Number: [id number] Reading MD: Measurements Intervals [place] Rate: 85 P: 49 UT: 160 QRS: 29 QRSD: 80 T: 59 QT: 358 QTc: 426 Interpretive Statements SINUS RHYTHM NORMAL ECG RI6.02 No previous ECG available for comparison
[2021-10-02 11:27] VITALS: BP 133/92
[2021-10-02] MEDS ORDERED: ACET500T68 PO (11:39)
[2021-10-02] MEDS ORDERED: ONDA4TAB12 PO (11:39)
--- NOTE | 2021-10-02 11:39 | PHYS DOC ---
Past Medical History Past Medical History: No Pertinent History Past Surgical History: Other Additional Past Surgical Histo: RECTAL SURGERY AND FIBROIDS FROM UTERUS Smoking Status: Never Smoker Alcohol Use: Occasionally Drug Use: Marijuana Adult General Chief Complaint Chief Complaint: CHEST PAIN HPI HPI The patient is a 41-year-old female who presents for evaluation of right upper chest discomfort, nonexertional and nonpleuritic, with onset over the past 1 to 2 days in the setting of about 3 days of mild cough, nonbloody vomiting and diarrhea. Discomfort waxes and wanes but never truly goes away. Severity about 4-10 at present. Has had about 5 episodes of vomiting and a couple of episodes of diarrhea each day over the interval in question. No associated fevers, hematemesis, hematochezia or melena, upper respiratory congestion/rhinorrhea, sore throat, shortness of breath, abdominal pain, flank pain, back pain, dysuria, hematuria, polyuria or oliguria, pain or swelling to arms or legs. No recent unusual travel, unusual foods, sick contacts with similar symptoms or recent antibiotic use. Patient is alert and pleasantly and appropriately interactive and in no acute distress with completely appropriate vital signs upon initial evaluation here in the emergency department. Review of Systems Review of Systems A 12 point review of systems was completed and was negative except where noted in HPI above. Current Medications Current Medications Current Medications Medications (Trade) Dose Ordered Sig/Isabela Start Time Stop Time Status Last Admin Dose Admin Acetaminophen (Tylenol) 1,000 mg 1X ONCE 10/02/21 07:30 10/02/21 07:37 DC 10/02/21 07:48 1,000 MG Aspirin (Doris Aspirin) 325 mg 1X ONCE 10/02/21 07:30 10/02/21 07:37 DC 10/02/21 07:48 325 MG Ondansetron HCl (Zofran) 4 mg 1X ONCE 10/02/21 07:30 10/02/21 07:37 DC Sodium Chloride 1,000 ml @ 1,000 mls/hr 1X ONCE 10/02/21 07:30 10/02/21 08:29 DC 10/02/21 07:48 1,000 MLS/HR Allergies Allergies Allergies Coded Allergies Type Severity Reaction Last Updated Verified No Known Drug Allergies 10/02/21 No Physical Exam Physical Exam 41-year-old female appearing nontoxic and in no acute distress. Head is normocephalic and atraumatic. Neck is supple and nontender. Oropharynx is moist. Lungs are clear to auscultation at all stations. There is a normal S1 and S2 without rubs or gallops and capillary refill is appropriate, less than 2 seconds globally. Abdomen is soft, nontender and nondistended. Skin is warm and dry without cyanosis, clubbing or edema. Psychiatrically, the patient demonstrates appropriate mood and affect and is alert. Evaluation of the extremities reveals BUEs and BLEs neurovascular intact distally with strength out of 5, sensation intact light touch in all nerve distributions, radial, DP and PT pulses 2+ and equal bilaterally, capillary refill less than 2 seconds, hands and feet warm and well-perfused. No dependent peripheral edema distally. No calf tenderness or swelling bilaterally. Homans test is negative bilaterally Current Patient Data Vital Signs Vital Signs Date Time Temp Pulse Resp B/P (MAP) Pulse Ox O2 Delivery O2 Flow Rate FiO2 10/02/21 10:27 78 141/85 (103) 99 Room Air 10/02/21 09:27 14 10/02/21 05:15 98.9 98.9 Lab Values Laboratory Tests Test 10/02/21 07:16 10/02/21 07:40 10/02/21 09:51 POC Urine HCG, Qualitative Hcg negative (Negative) White Blood Count 5.7 x10^3/uL (4.0-11.0) Red Blood Count 4.41 x10^6/uL (3.50-5.40) Hemoglobin 14.0 g/dL (12.0-15.5) Hematocrit 42.1 % (36.0-47.0) Mean Corpuscular Volume 96 fL (79-100) Mean Corpuscular Hemoglobin 32 pg (25-35) Mean Corpuscular Hemoglobin Concent 33 g/dL (31-37) Red Cell Distribution Width 12.3 % (11.5-14.5) Platelet Count 277 x10^3/uL (140-400) Neutrophils (%) (Auto) 45 % (31-73) Lymphocytes (%) (Auto) 44 % (24-48) Monocytes (%) (Auto) 8 % (0-9) Eosinophils (%) (Auto) 3 % (0-3) Basophils (%) (Auto) 1 % (0-3) Neutrophils # (Auto) 2.5 x10^3/uL (1.8-7.7) Lymphocytes # (Auto) 2.5 x10^3/uL (1.0-4.8) Monocytes # (Auto) 0.5 x10^3/uL (0.0-1.1) Eosinophils # (Auto) 0.2 x10^3/uL (0.0-0.7) Basophils # (Auto) 0.0 x10^3/uL (0.0-0.2) Prothrombin Time 12.7 SEC (11.7-14.0) Prothrombin Time INR 1.0 (0.8-1.1) Activated Partial Thromboplast Time 30 SEC (24-38) D-Dimer (Samantha) < 0.27 ug/mlFEU Sodium Level 141 mmol/L (136-145) Potassium Level 3.4 mmol/L (3.5-5.1) L Chloride Level 100 mmol/L (98-107) Carbon Dioxide Level 33 mmol/L (21-32) H Anion Gap 8 (6-14) Blood Urea Nitrogen 11 mg/dL (7-20) Creatinine 0.9 mg/dL (0.6-1.0) Estimated GFR (Cockcroft-Gault) 83.9 BUN/Creatinine Ratio 12 (6-20) Glucose Level 90 mg/dL (70-99) Calcium Level 9.3 mg/dL (8.5-10.1) Total Bilirubin 0.3 mg/dL (0.2-1.0) Aspartate Amino Transferase (AST) 30 U/L (15-37) Alanine Aminotransferase (ALT) 51 U/L (14-59) Alkaline Phosphatase 94 U/L (46-116) Troponin I High Sensitivity 4 ng/L (4-50) 4 ng/L (4-50) XB-Mfx-F-Type Natriuretic Peptide 7 pg/mL (0-124) Total Protein 7.6 g/dL (6.4-8.2) Albumin 4.1 g/dL (3.4-5.0) Albumin/Globulin Ratio 1.2 (1.0-1.7) Lipase 46 U/L (73-393) L Laboratory Tests 10/02/21 07:40 Laboratory Tests 10/02/21 07:40 EKG EKG Sinus rhythm, rate 85, no acute ST elevation or depression, MO 160, QRS 80, QTc 426, EP interpretation. Nonischemic tracing, intervals appropriate. Radiology/Procedures Radiology/Procedures EXAM: XR CHEST 1V 10/02/2021 7:37 AM CLINICAL INDICATION: Chest pain COMPARISON: Chest radiograph 05/01/2021 TECHNIQUE: AP upright view of the chest FINDINGS: The heart is normal in size. The lungs are well-expanded. Opacities on the prior radiograph have resolved. There is no consolidation, pleural effusion, or pneumothorax. A nodular opacity at the right lung base is likely a nipple shadow. No acute osseous abnormality. IMPRESSION: No acute cardiopulmonary abnormality. Electronically signed by: Joellen Rueda MD (10/02/2021 8:12 AM) [facility] DICTATED and SIGNED BY: JOELLEN RUEDA MD DATE: 10/02/21 [id number] 0 Course & Med Decision Making Course & Med Decision Making HEART score 1, low risk for near-term MACE. Wells low risk for PE and D-dimer negative. Large work-up is without evidence of acute process. Patient resting comfortably no acute distress on serial reassessments. Atypical chest discomfort likely related to cough, vomiting and diarrhea. Will discharge home with Zofran for nausea and Tylenol for discomfort. Patient is to follow-up closely with primary care in the next 2 to 4 days and understands that if she feels worse instead of better or develops other new symptoms of concern that she should return to the emergency department immediately for reevaluation. All questions were answered Dragon Disclaimer Dragon Disclaimer This electronic medical record was generated, in whole or in part, using a voice recognition dictation system. Departure Departure Impression: Primary Impression: Other chest pain Additional Impressions: Acute vomiting Acute diarrhea Disposition: HOME / SELF CARE / HOMELESS Condition: IMPROVED Patient Instructions: Chest Pain (Nonspecific), Diarrhea, Nausea and Vomiting Additional Instructions: Follow-up very closely with your primary care doctor in the office in the next 2 to 4 days for reevaluation of your symptoms and a discussion of next best steps in care. Take a Zofran tablet underneath your tongue every 8 hours as needed for nausea and/or vomiting. Take a Tylenol pill every 6 hours as needed for discomfort. Drink plenty of fluids and get plenty of rest. Return to the emergency department right away for worsening symptoms of any kind or with any other new symptoms of concern. Scripts Acetaminophen (ACETAMINOPHEN) 500 Mg Tablet 1 TAB PO PRN Q6HRS PRN for pain or fever for 15 Days, #60 TAB 0 Refills Prov: CALI HUBBARD MD 10/02/21 Ondansetron (ONDANSETRON ODT) 4 Mg Tab.rapdis 1 TAB PO PRN Q6-8HRS PRN for NAUSEA, #10 TAB Prov: CALI HUBBARD MD 10/02/21 Problem Qualifiers CALI HUBBARD MD Oct 02, 2021 11:39
== END 2021-10-02 11:50 | disposition home or self-care (01) ==
LOC: ER 05:08
DX: R07.89 Other chest pain (principal); R11.10 Vomiting, unspecified; R19.7 Diarrhea, unspecified; R05.9 Cough, unspecified
CPT/HCPCS: 36415; 71045; 80053; 81025; 83690; 83880; 84484; 85025; 85379; 85610; 85730; 93005; 96360; 96361; 99285; J7030

== ENCOUNTER 2021-11-14 18:52 | Emergency (ER) | payer BC ==
[~2021-11-14] VITALS: Ht 162.6 cm; Wt 81.8 kg
[~2021-11-14 18:52] MED LIST changes: +ACET500T68 PO; +ONDA4TAB12 PO
[2021-11-14] MEDS ORDERED: DIAZ5TAB PO (20:48)
[2021-11-14] MEDS ORDERED: NAPR-514 PO (20:48)
--- NOTE | 2021-11-14 20:49 | PHYS DOC ---
Past Medical History Past Medical History: No Pertinent History Additional Past Medical Histor: COVID 2020, PRE DM Past Surgical History: Other Additional Past Surgical Histo: RECTAL SURGERY, LIPOMA REMOVAL, MYOMECTOMY Smoking Status: Never Smoker Alcohol Use: Occasionally Drug Use: Marijuana General Adult EDM: Chief Complaint: BACK PAIN - NO INJURY HPI: HPI: Patient is a 41 year old female presented to the ED today complaining of 5 out of 10 neck pain, mid and low back pain, symptoms have been going on intermittent ly for 3 weeks. Patient denies any injuries. Describes the pain as "stiffness". Patient denies any pain radiating to bilateral lower extremities. Denies any loss of bowel/bladder function. She states she has seen her PCP and has been trying to get FMLA with no success. Patient states her pain is worse at work where she constantly has to move and lift items. She is employed at [employer]. Denies any urinary symptoms. Review of Systems: Review of Systems: Constitutional: Denies fever or chills. [] GI: Denies abdominal pain, nausea, vomiting, bloody stools or diarrhea. [] : Denies dysuria. [] Musculoskeletal: Reports neck, mid and low back pain/stiffness Integument: Denies rash. [] Neurologic: Denies headache, focal weakness or sensory changes. [] Psychiatric: Denies depression or anxiety. [] Heart Score: C/O Chest Pain: N/A Risk Factors: Risk Factors: DM, Current or recent (<one month) smoker, HTN, HLP, family history of CAD, obesity. Risk Scores: Score 0 - 3: 2.5% MACE over next 6 weeks - Discharge Home Score 4 - 6: 20.3% MACE over next 6 weeks - Admit for Clinical Observation Score 7 - 10: 72.7% MACE over next 6 weeks - Early Invasive Strategies Allergies: Allergies: Allergies Coded Allergies Type Severity Reaction Last Updated Verified No Known Drug Allergies 10/02/21 No Physical Exam: PE: Constitutional: Well developed, well nourished, no acute distress, non-toxic appearance. [] Neck: Normal range of motion, no tenderness, supple, no stridor. [] Abdomen: Bowel sounds normal, soft, no tenderness, no masses, no pulsatile masses. [] Skin: Warm, dry, no erythema, no rash. [] Back: No tenderness, no CVA tenderness. [] Extremities: No tenderness, no cyanosis, no clubbing, ROM intact, no edema. [] Neurologic: Alert and oriented X 3, normal motor function, normal sensory function, no focal deficits noted. [] Psychologic: Affect normal, judgement normal, mood normal. [] Current Patient Data: Vital Signs: Vital Signs Date Time Temp Pulse Resp B/P (MAP) Pulse Ox O2 Delivery O2 Flow Rate FiO2 11/14/21 20:00 98.1 81 16 136/82 (100) 100 Room Air 98.1 EKG: EKG: [] Radiology/Procedures: Radiology/Procedures: [] Course & Med Decision Making: Course & Med Decision Making Pertinent Labs and Imaging studies reviewed. (See chart for details) This a 41-year-old female patient presenting to the ED today with complaints of neck pain, mid and low back pain, symptoms of been going on for 3 weeks. Patient's pain is muscle skeletal. Discharge to home. Follow-up with PCP in 1 to 2 weeks. Heating pad recommended, massage is recommended. Chiropractor also discussed. Sebastian Disclaimer: Sebastian Disclaimer: This electronic medical record was generated, in whole or in part, using a voice recognition dictation system. Departure Departure Impression: Primary Impression: Neck pain Additional Impression: Back pain Qualified Codes: M54.50 - Low back pain, unspecified Disposition: 01 HOME / SELF CARE / HOMELESS Condition: STABLE Referrals: NO PCP (PCP) follow up in one week Patient Instructions: Back Pain, Adult Additional Instructions: You were evaluated in the emergency room for neck and back pain. Please follow- up with your primary care doctor in the next 7 days. You can also consider getting a massage, seeing a chiropractor, using a heating pad. Use the muscle relaxer as prescribed as needed. Do not drive on the muscle relaxers Scripts Naproxen (NAPROXEN) 500 Mg Tablet 1 TAB PO BID for pain, #20 TAB 0 Refills Prov: ISATU FRIEDMAN [employer]CH[employer]ICIAN 11/14/21 Diazepam (VALIUM) 5 Mg Tablet 5 MG PO TID, #21 TAB Prov: IDALIAISATU Jovani [employer] TECHNICIAN 11/14/21 ISATU FRIEDMAN LANCE Nov 14, 2021 20:49
[2021-11-14 21:12] VITALS: BP 138/80
== END 2021-11-14 21:15 | disposition home or self-care (01) ==
LOC: ER 18:52
DX: M54.2 Cervicalgia (principal); M54.50 Low back pain, unspecified; M54.6 Pain in thoracic spine
CPT/HCPCS: 99283